=== PATIENT | female | born 1955 | race Caucasian/White ===

== ENCOUNTER 2021-10-08 08:37 | Outpatient (REF) | payer OTHER, SELFPAY ==
[2021-10-08 11:16] LABS: Hematocrit 36.7 % (37.0-47.0); Hemoglobin 11.6 g/dl (12.0-16.0); Mean Corpuscular HGB Conc 31.6 g/dl (31.0-35.0); Mean Corpuscular Hemoglobin 27.2 pg (27.0-33.0); Mean Corpuscular Volume 85.9 fL (80.0-98.0); Mean Platelet Volume 12.2 fL (9.4-12.3); Platelet Count 223 X10*3/uL (160-400); Red Blood Count 4.27 X10*6/uL (4.20-5.50); Red Cell Distribution Width 13.5 % (11.0-16.0); White Blood Count 6.4 X10*3/uL (4.8-10.8)
[2021-10-08 11:42] LABS: Alanine Aminotransferase 25 U/L (0-31); Albumin Level 4.5 g/dL (3.5-5.0); Alkaline Phosphatase 69 U/L (39-117); Anion Gap 12 (12-20); Aspartate Amino Transferase 21 U/L (5-31); Bilirubin Total 0.7 mg/dL (0.0-1.0); Blood Urea Nitrogen 14 mg/dL (9-16); Calcium 9.9 mg/dL (8.4-10.2); Carbon Dioxide 30 mmol/L (22-29); Chloride 102 mmol/L (96-108); Cholesterol 174 mg/dL; Estimated Glomerular Filt Rate > 60; Glucose Fasting 107 mg/dL (60-99); HDL Cholesterol 38 mg/dL; LDL Cholesterol Calculated 109 mg/dl; Potassium 4.5 mmol/L (3.3-5.1); Sodium 139 mmol/L (135-145); Total Protein 7.5 g/dL (6.5-8.0); Triglycerides 137 mg/dL
[2021-10-08 12:05] LABS: TSH reflex Free T4 1.62 uIU/mL (0.32-4.0)
== END 2021-10-08 08:38 | disposition home or self-care (01) ==
LOC: HO.WFDLDS 08:37
PROVIDERS: Visit Provider Hospitalist
DX: Z00.00 Encounter for general adult medical examination without abnormal findings (principal)
CPT/HCPCS: 36415; 80053; 80061; 84443; 85027

== ENCOUNTER 2022-02-05 11:01 | Outpatient (REF) | payer MEDICAID, SELFPAY ==
--- NOTE | ~2022-02-05 | MM_ITS ---
EXAMINATION: BONE DENSITOMETRY CLINICAL INDICATION: Asymptomatic menopausal state. COMPARISON: None (current study represents initial baseline exam). TECHNIQUE: Using a [employer] DXA System (software version: 13.1) manufactured by [employer], dual-energy x-ray absorptiometry was performed of the lumbar spine and left hip. The images are of good technical quality. Summary results are attached. FINDINGS: AP SPINE L1-L4: BMD 0.809 g/cm2, Z-score -1.3, T-score -3.1, osteoporosis. LEFT FEMUR, NECK: BMD 0.803 g/cm2, Z-score -0.1, T-score -1.7, osteopenia. LEFT FEMUR, TOTAL: BMD 0.883 g/cm2, Z-score 0.3, T-score -1.0, normal. IDENTIFIED RISK FACTORS: Menopause, hysterectomy, bilateral oophorectomy. HISTORY OF FRACTURE: None listed. MEDICATIONS: Calcium supplements or multivitamin, vitamin D. MM/XR DEXA axial skeleton IMPRESSION: 1. DIAGNOSIS: Osteoporosis based on the lowest T-score value of -3.1 in the lumbar spine applying World Health Organization criteria. 2. 10-YEAR FRACTURE RISK PREDICTION, FRAX: According to the guidelines, FRAX calculation should only be performed on patients in the osteopenia bone density category. Therefore, FRAX was not performed on this patient. 3. Treatment Recommendations: NOF guidelines recommend consideration for treatment in postmenopausal women and men age 50 and older presenting with the following: -A hip or vertebral (clinical or morphometric) fracture. -T-score less than or equal to -2.5 at the femoral neck or spine after appropriate evaluation to exclude secondary causes. -Low bone mass at the hip or spine and a 10-year fracture probability by FRAX of greater than or equal to 3% for hip fracture or greater than or equal to 20% for major osteoporotic fracture based on the [place] adapted WHO algorithm. 4. Other Recommendations: All treatment decisions require clinical judgment and consideration of individual patient factors, including patient preferences, comorbidities, previous drug use, risk factors not captured in the FRAX model (e.g. frailty, falls, vitamin D deficiency, increased bone turnover, interval significant decline in bone density) and possible under or overestimation of fracture risk by FRAX. Additional medical evaluation for secondary cause of low bone mineral density may be appropriate. FUTURE SCAN RECOMMENDATION: People with diagnosed cases of osteoporosis or at high risk for fracture should have regular bone mineral density tests. For patients eligible for Medicare, routine testing is allowed once every 2 years. The testing frequency can be increased to one year for patients who have rapidly progressing disease, those who are receiving or discontinuing medical therapy to restore bone mass, or have additional risk factors.
--- NOTE | ~2022-02-05 | MM_ITS ---
EXAMINATION: MM SCREENING DIGITAL BREAST TOMOSYNTHESIS, BILATERAL CLINICAL INFORMATION: Screening. Asymptomatic. The lifetime risk of breast cancer based on the Tyrer-Cuzick Model is 5.5%. COMPARISON: Mammography: None. TECHNIQUE: Digital breast tomosynthesis is performed in both the craniocaudal and mediolateral oblique views along with computer-aided detection (CAD). Synthesized 2D images are generated from the tomosynthesis. FINDINGS: The breasts are heterogeneously dense, which may obscure small masses (ACR BI-RADS breast composition Category c). There is multiplicity and bilaterality of grouped and scattered calcifications bilaterally with a rounded appearance and without evidence of linear or branching forms. About the deep right breast along nipple line 10 cm from the nipple there is a 2 mm well-circumscribed density without spiculation or calcifications. By tomosynthesis this should lie in the lateral aspect of the breast, however, there is a large amount of dense breast parenchyma there and I cannot definitely discern this density on craniocaudal view. Spot compression view and ultrasound recommended. Within the retroareolar region of the left breast there is a small grouping of calcifications a few of which are not rounded and for which spot magnification views are recommended in craniocaudal and 90 degree mediolateral views. MM/MM tomosynthesis screening BI IMPRESSION: Bilateral breast findings for further evaluation as described. ASSESSMENT: BI-RADS 0: Incomplete - Need Additional Imaging Evaluation RECOMMENDATION: 1. Additional views of the bilateral breasts. 2. Targeted ultrasound if warranted after review of the additional views. 3. Radiology department staff will contact the patient for additional imaging. This patient's information was entered into a reminder system with a target due date for their next mammogram.
== END 2022-02-05 11:02 | disposition home or self-care (01) ==
LOC: HO.MAMMO 11:01
PROVIDERS: Visit Provider Obstetrics & Gynecology
DX: Z12.31 Encounter for screening mammogram for malignant neoplasm of breast (principal); Z13.820 Encounter for screening for osteoporosis; Z78.0 Asymptomatic menopausal state
CPT/HCPCS: 77063; 77067; 77080

== ENCOUNTER → 2022-02-16 09:23 | Outpatient (BNVA) | payer MEDICAID, SELFPAY | PROVIDERS: PCP Hospitalist; Visit Provider Obstetrics & Gynecology | DX: M81.0 Age-related osteoporosis without current pathological fracture (principal) | CPT/HCPCS: 99212 ==

== ENCOUNTER 2022-02-23 10:16 | Outpatient (REF) | payer MEDICAID, SELFPAY ==
--- NOTE | ~2022-02-23 | MM_ITS ---
EXAMINATION: MM DIAGNOSTIC DIGITAL MAMMOGRAPHY, LEFT. Right breast study at no charge. CLINICAL INFORMATION: Right breast density and left breast calcifications. COMPARISON: Mammography: February 05, 2022 and mammography dating back to April 20, 2019 TECHNIQUE: Digital mammography is performed in the following views: Left breast spot magnification views in 90 degree mediolateral and craniocaudal projections. Spot compression view right breast in mediolateral oblique projection. FINDINGS: The breasts are heterogeneously dense, which may obscure small masses (ACR BI-RADS breast composition Category c). The right breast density about the superior aspect is noted to be stable. The grouping of calcifications about the anterior aspect of the left breast appear similar to previous study however they are better seen and six-month follow-up left breast mammogram with spot magnification views is recommended. Results are discussed with the patient at time of visit. MM/MM added views LT IMPRESSION: Stable right breast density. Probably benign calcifications anterior aspect of the left breast. ASSESSMENT: BI-RADS 3: Probably Benign RECOMMENDATION: Diagnostic mammography in 6 months. This patient's information was entered into a reminder system with a target due date for their next mammogram.
== END 2022-02-23 10:17 | disposition home or self-care (01) ==
LOC: HO.MAMMO 10:16
PROVIDERS: PCP Hospitalist; Visit Provider Hospitalist
DX: R92.2 Inconclusive mammogram (principal); R92.1 Mammographic calcification found on diagnostic imaging of breast
CPT/HCPCS: 77065

== ENCOUNTER → 2022-03-30 09:58 | Outpatient (BNVA) | payer MEDICAID, SELFPAY | PROVIDERS: PCP Hospitalist; Visit Provider Nurse Practitioner Family | DX: M54.2 Cervicalgia (principal); G47.33 Obstructive sleep apnea (adult) (pediatric); Z99.89 Dependence on other enabling machines and devices; G43.009 Migraine without aura, not intractable, without status migrainosus | CPT/HCPCS: 99202 ==

== ENCOUNTER 2022-04-16 08:24 | Outpatient (REF) | payer MEDICAID, SELFPAY ==
[2022-04-16 10:55] LABS: MANUAL DIFF FLAG NO
[2022-04-16 11:11] LABS: Basophils Percent Auto 0.1 % (0-2); Eosinophils Absolute Auto 0.1 X10*3/uL (0.0-0.4); Eosinophils Percent Auto 1.7 % (0-4); Hematocrit 37.2 % (37.0-47.0); Hemoglobin 12.1 g/dl (12.0-16.0); Imm Gran Abs Auto 0.02 X10*3/uL (0.00-0.03); Imm Gran Pct Auto 0.3 % (0.0-0.4); Lymphocytes Absolute Auto 1.9 X10*3/uL (1.2-4.9); Lymphocytes Percent Auto 26.8 % (20-40); Mean Corpuscular HGB Conc 32.5 g/dl (31.0-35.0); Mean Corpuscular Hemoglobin 26.9 pg (27.0-33.0); Mean Corpuscular Volume 82.7 fL (80.0-98.0); Mean Platelet Volume 11.9 fL (9.4-12.3); Monocytes Absolute Auto 0.5 X10*3/uL (0.1-1.2); Monocytes Percent Auto 7.2 % (2-11); Neutrophils Absolute Auto 4.6 x10*3/uL (2.0-8.3); Neutrophils Percent Auto 63.9 % (45-73); Platelet Count 237 X10*3/uL (160-400); Red Cell Distribution Width 13.6 % (11.0-16.0); White Blood Count 7.3 X10*3/uL (4.8-10.8)
[2022-04-16 11:37] LABS: Alanine Aminotransferase 18 U/L (0-31); Albumin Level 4.6 g/dL (3.5-5.0); Alkaline Phosphatase 82 U/L (39-117); Amylase 91 U/L (28-100); Anion Gap 16 (12-20); Aspartate Amino Transferase 20 U/L (5-31); Blood Urea Nitrogen 14 mg/dL (9-16); Calcium 9.7 mg/dL (8.4-10.2); Carbon Dioxide 28 mmol/L (22-29); Chloride 101 mmol/L (96-108); Estimated Glomerular Filt Rate 60; Glucose Fasting 99 mg/dL (60-99); Lipase 29 U/L (8-78); Potassium 4.5 mmol/L (3.3-5.1); Sodium 140 mmol/L (135-145); Total Protein 7.8 g/dL (6.5-8.0)
== END 2022-04-16 08:25 | disposition home or self-care (01) ==
LOC: HO.WFDLDS 08:24
PROVIDERS: Visit Provider Nurse Practitioner Family
DX: R10.9 Unspecified abdominal pain (principal)
CPT/HCPCS: 36415; 80053; 82150; 83690; 85025

== ENCOUNTER → 2022-06-18 10:46 | Outpatient (BNVA) | payer MEDICAID, SELFPAY | PROVIDERS: PCP Hospitalist; Visit Provider Nurse Practitioner Family | DX: G47.33 Obstructive sleep apnea (adult) (pediatric) (principal); M54.2 Cervicalgia; G43.009 Migraine without aura, not intractable, without status migrainosus; R41.840 Attention and concentration deficit; Z99.89 Dependence on other enabling machines and devices | CPT/HCPCS: 99212 ==

== ENCOUNTER → 2022-07-28 11:33 | Outpatient (BNVA) | payer MEDICAID, SELFPAY | PROVIDERS: PCP Hospitalist; Visit Provider Student in an Organized Health Care Education/Training Program | DX: M81.0 Age-related osteoporosis without current pathological fracture (principal) | CPT/HCPCS: 36415; 80053; 82306; 83519; 83970; 84165; 84443; 85025; 99202 ==

== ENCOUNTER 2022-07-28 12:55 | Outpatient (REF) | payer MEDICAID, SELFPAY ==
[2022-07-28 14:21] LABS: Basophils Percent Auto 0.4 % (0-2); Eosinophils Absolute Auto 0.1 X10*3/uL (0.0-0.4); Eosinophils Percent Auto 2.5 % (0-4); Hematocrit 36.4 % (37.0-47.0); Hemoglobin 11.7 g/dl (12.0-16.0); Imm Gran Abs Auto 0.02 X10*3/uL (0.00-0.03); Imm Gran Pct Auto 0.4 % (0.0-0.4); Lymphocytes Absolute Auto 1.7 X10*3/uL (1.2-4.9); Lymphocytes Percent Auto 31.6 % (20-40); MANUAL DIFF FLAG NO; Mean Corpuscular HGB Conc 32.1 g/dl (31.0-35.0); Mean Corpuscular Hemoglobin 26.7 pg (27.0-33.0); Mean Corpuscular Volume 83.1 fL (80.0-98.0); Mean Platelet Volume 11.5 fL (9.4-12.3); Monocytes Absolute Auto 0.3 X10*3/uL (0.1-1.2); Neutrophils Absolute Auto 3.3 x10*3/uL (2.0-8.3); Neutrophils Percent Auto 59.1 % (45-73); Platelet Count 225 X10*3/uL (160-400); Red Blood Count 4.38 X10*6/uL (4.20-5.50); Red Cell Distribution Width 13.3 % (11.0-16.0); White Blood Count 5.5 X10*3/uL (4.8-10.8)
[2022-07-28 15:33] LABS: Alanine Aminotransferase 17 U/L (0-31); Albumin Level 4.4 g/dL (3.5-5.0); Alkaline Phosphatase 77 U/L (39-117); Anion Gap 14 (12-20); Aspartate Amino Transferase 21 U/L (5-31); Blood Urea Nitrogen 18 mg/dL (9-16); Calcium 9.5 mg/dL (8.4-10.2); Carbon Dioxide 25 mmol/L (22-29); Chloride 106 mmol/L (96-108); Estimated Glomerular Filt Rate > 60; Glucose Random 89 mg/dL (60-115); Potassium 4.3 mmol/L (3.3-5.1); Sodium 141 mmol/L (135-145); TSH reflex Free T4 0.79 uIU/mL (0.32-4.0); Total Protein 7.3 g/dL (6.5-8.0)
[2022-07-29 11:38] LABS: Calcium (PTHI) 9.7 mg/dL (8.6-10.4); PTHI 54 pg/mL (16-77)
[2022-07-29 14:53] LABS: Prot Elec - Albumin 4.4 g/dL (3.8-4.8); Prot Elec - Alpha1 0.3 g/dL (0.2-0.3); Prot Elec - Alpha2 0.7 g/dL (0.5-0.9); Prot Elec - Beta 1 0.5 g/dL (0.4-0.6); Prot Elec - Beta 2 0.4 g/dL (0.2-0.5); Prot Elec - Gamma 1.2 g/dL (0.8-1.7); Prot Elec - Total Protein 7.4 g/dL (6.1-8.1)
[2022-08-01 11:54] LABS: Vitamin D 25-OH, D2 <4 ng/mL; Vitamin D 25-OH, D3 41 ng/mL; Vitamin D 25-OH, Total 41 ng/mL (30-100)
[2022-08-03 08:17] LABS: Procollagen Type I Intact N SEE COMMENTS
== END 2022-07-28 12:56 | disposition home or self-care (01) ==
LOC: HO.10HDL 12:55
PROVIDERS: Visit Provider Student in an Organized Health Care Education/Training Program
DX: M81.0 Age-related osteoporosis without current pathological fracture (principal)
CPT/HCPCS: 36415; 80053; 82306; 83519; 83970; 84165; 84443; 85025

== ENCOUNTER → 2022-08-19 10:50 | Outpatient (BNVA) | payer MEDICAID, SELFPAY | PROVIDERS: PCP Hospitalist; Visit Provider Student in an Organized Health Care Education/Training Program | DX: M81.0 Age-related osteoporosis without current pathological fracture (principal) | CPT/HCPCS: 96372 ==

== ENCOUNTER → 2022-08-20 11:06 | Outpatient (BNVA) | payer MEDICAID, SELFPAY | PROVIDERS: PCP Hospitalist; Visit Provider Nurse Practitioner Family | DX: G47.33 Obstructive sleep apnea (adult) (pediatric) (principal); G43.009 Migraine without aura, not intractable, without status migrainosus; R41.840 Attention and concentration deficit; Z99.89 Dependence on other enabling machines and devices | CPT/HCPCS: 99212 ==

== ENCOUNTER 2022-08-28 12:49 | Outpatient (REF) | payer MEDICAID, SELFPAY ==
--- NOTE | ~2022-08-28 | MM_ITS ---
EXAMINATION: MM DIAGNOSTIC DIGITAL BREAST TOMOSYNTHESIS, LEFT CLINICAL INFORMATION: Short interval follow-up left breast for probable benign subareolar calcifications. COMPARISON: Mammography: 02/23/2022, 02/05/2022 (BI-RADS 0); outside mammography 10/10/2020 and 04/20/2019 ([facility], [place], [place]). TECHNIQUE: Digital breast tomosynthesis is performed in both the craniocaudal and mediolateral oblique views along with computer-aided detection (CAD). Synthesized 2D images are generated from the tomosynthesis. Additional magnification left CC and magnification left ML views are obtained. FINDINGS: The breasts are heterogeneously dense, which may obscure small masses (ACR BI-RADS breast composition Category c). Parenchymal pattern is similar to prior studies and there is no significant mass, developing density, or architectural abnormality. The axilla and skin contours are unremarkable. Left breast calcifications for follow-up are benign-appearing and show no significant change from prior diagnostic exam. They are likely chronic and without significant change from outside standard mammography. Management plan is for magnification views left breast at time of annual bilateral mammography, due in 6 months. Results are discussed with the patient and her daughter at time of visit. MM/MM tomosynthesis diagnostic LT IMPRESSION: -Benign-appearing anterior left breast calcifications stable from prior diagnostic exam and likely chronic. No mammographic evidence of malignancy. No significant changes. ASSESSMENT: BI-RADS 3: Probably Benign RECOMMENDATION: Diagnostic mammography at time of annual bilateral mammography, due in 6 months. This patient's information was entered into a reminder system with a target due date for their next mammogram.
== END 2022-08-28 12:50 | disposition home or self-care (01) ==
LOC: HO.MAMMO 12:49
PROVIDERS: PCP Hospitalist; Visit Provider Obstetrics & Gynecology
DX: R91.8 Other nonspecific abnormal finding of lung field (principal)
CPT/HCPCS: 77061; 77065

== ENCOUNTER 2022-09-10 09:11 | Outpatient (REF) | payer MEDICAID, SELFPAY ==
[2022-09-10 15:13] LABS: Magnesium 2.2 mg/dL (1.6-2.6); Phosphorus 3.3 mg/dL (2.7-4.5)
[2022-09-16 18:13] LABS: Vitamin D 25-OH, D2 <4 ng/mL; Vitamin D 25-OH, D3 37 ng/mL; Vitamin D 25-OH, Total 37 ng/mL (30-100)
== END 2022-09-10 09:12 | disposition home or self-care (01) ==
LOC: HO.WFDLDS 09:11
PROVIDERS: Visit Provider Hospitalist
DX: K21.9 Gastro-esophageal reflux disease without esophagitis (principal)
CPT/HCPCS: 36415; 82306; 83735; 84100

== ENCOUNTER 2022-09-30 11:06 | Outpatient (REF) | payer MEDICAID, SELFPAY | END 2022-09-30 11:07 | disposition home or self-care (01) | LOC: HO.LAB 11:06 | PROVIDERS: Visit Provider Hospitalist | DX: Z87.440 Personal history of urinary (tract) infections (principal) | CPT/HCPCS: 87086; 87088; 87186 ==

== ENCOUNTER 2022-12-01 10:50 | Outpatient (REF) | payer MEDICAID, SELFPAY ==
--- NOTE | ~2022-12-01 | XR_ITS ---
EXAMINATION: XR KNEE, LEFT CLINICAL INFORMATION: Fall COMPARISON: None available. TECHNIQUE: 3 views of the left knee. FINDINGS: Bones and soft tissues are normal. No fracture or joint effusion. Alignment is anatomic. Joint spaces are well maintained. No abnormal soft tissue calcification. XR/XR knee LT 3V IMPRESSION: Normal left knee.
--- NOTE | ~2022-12-01 | XR_ITS ---
EXAMINATION: XR HIP, RIGHT CLINICAL INFORMATION: Right hip pain COMPARISON: None available. TECHNIQUE: Two views of the right hip. FINDINGS: Bones and soft tissues are normal. No fracture. Alignment is anatomic. Hip joint space is maintained. XR/XR hip RT min 2V IMPRESSION: Normal right hip.
--- NOTE | ~2022-12-01 | XR_ITS ---
EXAMINATION: Left ankle and foot x-ray CLINICAL INFORMATION: Pain. Fall. COMPARISON: None. TECHNIQUE: 3 views of the left ankle and 3 views of the left foot FINDINGS: Left ankle: Question avulsion fracture of the lateral calcaneus seen on the AP view only. There is adjacent soft tissue swelling. No other fracture is seen. The ankle mortise is normal. Left foot: There is again question avulsion fracture of the lateral talus near the calcaneocuboid joint. There is adjacent soft tissue swelling. There are well-corticated soft tissue ossifications adjacent to the cuboid bone questionable for changes related to old trauma versus accessory ossicles. No other fracture. Joint spaces are normal. There are calcaneal spurs. XR/XR ankle LT min 3V IMPRESSION: Probable avulsion fracture of the lateral calcaneus near the calcaneocuboid joint. Findings will be communicated by the [employer] work flow tile edger.
--- NOTE | ~2022-12-01 | XR_ITS ---
EXAMINATION: XR LUMBOSACRAL SPINE WITH OBLIQUES CLINICAL INFORMATION: Fall COMPARISON: None available. TECHNIQUE: AP, both oblique, and lateral views of the lumbar spine. Lateral view of the lumbosacral junction. FINDINGS: There is mild curvature of lumbar sacral spine to the right. Bone alignment is otherwise normal. No fracture or dislocation. Normal disc spaces. Lower lumbar spine facet arthritis. No pars defect seen. XR/XR lumbar spine 4V min IMPRESSION: Mild scoliosis and degenerative changes. No fracture.
--- NOTE | ~2022-12-01 | XR_ITS ---
EXAMINATION: Left ankle and foot x-ray CLINICAL INFORMATION: Pain. Fall. COMPARISON: None. TECHNIQUE: 3 views of the left ankle and 3 views of the left foot FINDINGS: Left ankle: Question avulsion fracture of the lateral calcaneus seen on the AP view only. There is adjacent soft tissue swelling. No other fracture is seen. The ankle mortise is normal. Left foot: There is again question avulsion fracture of the lateral talus near the calcaneocuboid joint. There is adjacent soft tissue swelling. There are well-corticated soft tissue ossifications adjacent to the cuboid bone questionable for changes related to old trauma versus accessory ossicles. No other fracture. Joint spaces are normal. There are calcaneal spurs. XR/XR foot LT min 3V IMPRESSION: Probable avulsion fracture of the lateral calcaneus near the calcaneocuboid joint. Findings will be communicated by the [employer] work flow research spec.
== END 2022-12-01 10:51 | disposition home or self-care (01) ==
LOC: HO.XRAY 10:50
PROVIDERS: PCP Hospitalist; Visit Provider Student in an Organized Health Care Education/Training Program
DX: M81.0 Age-related osteoporosis without current pathological fracture (principal); W19.XXXA Unspecified fall, initial encounter; M79.672 Pain in left foot; M25.551 Pain in right hip; M41.9 Scoliosis, unspecified
CPT/HCPCS: 72110; 73502; 73562; 73610; 73630; 99212

== ENCOUNTER 2022-12-17 07:20 | Outpatient (REF) | payer MEDICAID, SELFPAY ==
--- NOTE | ~2022-12-17 | XR_ITS ---
EXAMINATION: XR FOOT, LEFT CLINICAL INFORMATION: Foot pain. COMPARISON: 12/01/2022 TECHNIQUE: AP, lateral, and oblique views of the left foot. FINDINGS: Again seen is the avulsion fracture at the lateral calcaneus that can be seen on the AP view. There is a bit more indistinctness of the bone indicating some possible interval healing. Mild degenerative changes are seen at the 1st metatarsophalangeal joint with some joint space narrowing, mild sclerosis and minimal osteophyte formation. No new acute fractures are seen. No stress fractures. XR/XR foot LT min 3V IMPRESSION: Healing avulsion fracture lateral calcaneus. Mild degenerative changes 1st metatarsophalangeal joint.
== END 2022-12-17 07:21 | disposition home or self-care (01) ==
LOC: HO.HOSX 07:20
PROVIDERS: Visit Provider Physician Assistant
DX: S92.002A Unspecified fracture of left calcaneus, initial encounter for closed fracture (principal); W10.9XXA Fall (on) (from) unspecified stairs and steps, initial encounter; Y93.9 Activity, unspecified; Y92.9 Unspecified place or not applicable; Y99.9 Unspecified external cause status
CPT/HCPCS: 73630; 99202

== ENCOUNTER → 2022-12-21 11:19 | Outpatient (BNVA) | payer MEDICAID, SELFPAY | PROVIDERS: PCP Hospitalist; Visit Provider Nurse Practitioner Family | DX: G47.33 Obstructive sleep apnea (adult) (pediatric) (principal); G43.009 Migraine without aura, not intractable, without status migrainosus; R41.840 Attention and concentration deficit; Z99.89 Dependence on other enabling machines and devices | CPT/HCPCS: 99212 ==

== ENCOUNTER 2023-02-04 13:17 | Outpatient (AMB) | payer MEDICAID, SELFPAY ==
--- NOTE | 2023-02-04 13:21 | MHC.OFFVIS ---
Intake Vital Signs 02/04/23 13:22 Height 5 ft 1 in Weight 123 lb BMI 23.2 BP 130/70 Intake Visit Reasons: Annual Intake Note: no concerns Certified Wellness Program Coordinator Required: Yes Certified Wellness Program Coordinator Language: Independent Marketing Consultant Name: Eli MORRIS Information Interpreted: non-clinical & clinical Senior Python Developer: Senior Python Developer Present (Eli MORRIS) Accompanied by: Self / Same As Patient Allergies aspirin Allergy (Intermediate, Verified 02/04/23 13:26) Rash NSAIDS (Non-Steroidal Anti-Inflamma Allergy (Intermediate, Verified 02/04/23 13:26) Rash Penicillins Allergy (Intermediate, Verified 02/04/23 13:26) Rash Post menopausal: Yes HPI HPI Comments History of Present Illness Details Presenting for annual exam. No complaints. Last Pap/HPV was many years ago, no history of abnormal Pap smear, the patient is status post hysterectomy with BSO for bleeding Last Mammogram was BI-RADS 3 in 08/27, the recommendation was to repeat in 6 months, the patient has an appointment scheduled for repeat mammogram in Last Colonoscopy was 3 years ago, the next you colonoscopy according to patient will be in 7 year Last DEXA scan was in 02/23 showed osteoporosis, the patient had a consult with rheumatology about options of treatment and the patient has been on Prolia q.6 months PFS Medical History Carpal tunnel syndrome High cholesterol Hypertension Osteoporosis Sleep apnea Trigger finger Surgical History History of 3 sections History of carpal tunnel release Hx of hysterectomy Family History Father Hypertension Mother Hypertension Arthritis Social History Household Members: Children Housing: Condominium Alcohol intake: current Alcohol intake frequency: holidays/special occasions only Alcohol type: wine Patient Tobacco Use Status: Never used Tobacco e-Cigarette/Vaping Use: Never Used Current occupational status: unemployed Sexual orientation: Straight/Heterosexual Gender identity: Female Female Reproductive History Menstrual Menopause type: surgical Total pregnancies: 3 Full term: 3 Number of Living Children: 3 Date of Mammogram: 08/28/22 Review of Systems Const All systems reviewed & are unremarkable except as noted in HPI and below Card Reports as per HPI and Reports no additional complaints Resp Reports as per HPI and Reports no additional complaints GI Reports as per HPI and Reports no additional complaints Reports as per HPI Physical Exam Vital Signs: BMI result Body Mass Index 23.2 Const General: cooperative, healthy appearing and comfortable General: Yes bladder normal to palpation External Female Exam: No lesion Speculum Exam - Vagina: normal appearance of the vagina, normal vaginal discharge and not erythematous Speculum Exam - Cervix: Cervix absent Bimanual exam- vagina & uterus: bladder normal to palpation and uterus absent Bimanual Exam- Adnexa, other: Other (No masses detected) Assessment & Plan Assessment & Plan (1) Well woman exam: Code(s): Z01.419 - Encounter for gynecological examination (general) (routine) without abnormal findings Plan: Co testing not indicated since the patient 's age is above 65 with no history of abnormal Pap smears last 25 years and the patient is status post hysterectomy with BSO. Counseled the patient about the recommended dietary allowance of 1200 mg of Calcium & 800 IU of vitamin D. Mammogram scheduled in the coming 2 weeks , the patient is up-to-date with her screening colonoscopy done. The patient was instructed to perform monthly self-breast exams and to schedule an annual exam in a year; all questions answered and the patient verbalized understanding. Coding Level of Care Code Est Pt Prev Care >65y(32930) Diagnoses Well woman exam Z01.419
[2023-02-04 13:22] VITALS: BP 130/70; BMI 23.2
== END 2023-02-04 14:56 | disposition home or self-care (01) ==
LOC: HO.HWS 13:17
PROVIDERS: PCP Hospitalist; Visit Provider Obstetrics & Gynecology
DX: Z01.419 Encounter for gynecological examination (general) (routine) without abnormal findings (principal)
CPT/HCPCS: 99397

== ENCOUNTER → 2023-02-04 13:17 | Outpatient (BNVA) | payer MEDICAID, SELFPAY | PROVIDERS: PCP Hospitalist; Visit Provider Obstetrics & Gynecology ==

== ENCOUNTER 2023-02-10 10:27 | Outpatient (REF) | payer MEDICAID, SELFPAY ==
[2023-02-10 13:50] LABS: Alanine Aminotransferase 19 U/L (0-31); Albumin Level 4.3 g/dL (3.5-5.0); Alkaline Phosphatase 49 U/L (39-117); Anion Gap 12 (12-20); Aspartate Amino Transferase 20 U/L (5-31); Bilirubin Total 1.1 mg/dL (0.0-1.0); Blood Urea Nitrogen 18 mg/dL (9-16); Calcium 9.9 mg/dL (8.4-10.2); Carbon Dioxide 25 mmol/L (22-29); Chloride 110 mmol/L (96-108); Estimated Glomerular Filt Rate > 60; Glucose Random 93 mg/dL (60-115); Potassium 3.6 mmol/L (3.3-5.1); Sodium 143 mmol/L (135-145); Total Protein 7.5 g/dL (6.5-8.0)
== END 2023-02-10 10:28 | disposition home or self-care (01) ==
LOC: HO.10HDL 10:27
PROVIDERS: Visit Provider Student in an Organized Health Care Education/Training Program
DX: M81.0 Age-related osteoporosis without current pathological fracture (principal)
CPT/HCPCS: 36415; 80053

== ENCOUNTER 2023-03-02 10:58 | Outpatient (REF) | payer MEDICAID, SELFPAY ==
--- NOTE | ~2023-03-02 | MM_ITS ---
EXAMINATION: MM DIAGNOSTIC DIGITAL BREAST TOMOSYNTHESIS, BILATERAL CLINICAL INFORMATION: Six-month follow-up left breast probably benign retroareolar calcifications to establish one-year stability. Patient also due for bilateral screening exam. COMPARISON: Mammography: 01/25/2023, 02/23/2022, 02/05/2022, and dating back to 04/20/2019. TECHNIQUE: Digital breast tomosynthesis is performed in both the craniocaudal and mediolateral oblique views along with computer-aided detection (CAD). Synthesized 2D images are generated from the tomosynthesis. In addition, spot magnification 2-D CC and ML views of the left breast were performed. FINDINGS: The breasts are heterogeneously dense, which may obscure small masses (ACR BI-RADS breast composition Category c). There are stable grouped calcifications in the retroareolar region of the left breast, anterior one third, just behind the nipple, which have not changed in morphology, number, or overall appearance. These remain probably benign. No aggressive changes noted. There are scattered calcifications seen throughout both breasts, unchanged and benign. The appearance is suggestive of adenosis or apocrine changes. No new suspicious grouping or clustering. There are no suspicious masses, suspicious grouped calcifications, or areas of architectural distortion which can be distinguished from the heterogeneously dense breast parenchyma. The parenchymal pattern is stable from prior exams. MM/MM tomosynthesis diagnostic BI IMPRESSION: No significant interval change and retroareolar left breast grouped calcifications, which remain probably benign. This establishes a one-year stability. Six-month interval follow-up left breast diagnostic mammogram to include standard magnification views recommended to ensure stability over 1.5 years. Goal is stability over 2 years. Otherwise, stable benign findings in both breasts. No findings suspicious for malignancy. ASSESSMENT: BI-RADS BI-RADS 3 - Probably benign finding(s) - 6 month follow-up suggested RECOMMENDATION: 6 Month F/U Results were provided to the patient at time of visit by the technologist. This patient's information was entered into a reminder system with a target due date for their next mammogram.
== END 2023-03-02 10:59 | disposition home or self-care (01) ==
LOC: HO.MAMMO 10:58
PROVIDERS: PCP Internal Medicine; Visit Provider Obstetrics & Gynecology
DX: R92.1 Mammographic calcification found on diagnostic imaging of breast (principal)
CPT/HCPCS: 77062; 77066

== ENCOUNTER → 2023-03-02 11:00 | Outpatient (BNV) | payer MEDICAID, SELFPAY | PROVIDERS: PCP Internal Medicine; Visit Provider Radiology Diagnostic Radiology | DX: N63.20 Unspecified lump in the left breast, unspecified quadrant (principal) | CPT/HCPCS: 77062; 77066 ==

== ENCOUNTER 2023-03-04 11:05 | Outpatient (AMB) | payer MEDICAID, SELFPAY ==
--- NOTE | 2023-03-04 15:30 | AM.OFFVISNUR ---
Intake Intake Visit Reasons: Prolia Injection Allergies aspirin Allergy (Intermediate, Verified 02/04/23 13:26) Rash NSAIDS (Non-Steroidal Anti-Inflamma Allergy (Intermediate, Verified 02/04/23 13:26) Rash Penicillins Allergy (Intermediate, Verified 02/04/23 13:26) Rash Nursing Note Verbal consent obtained Aseptic technique used Pt tolerated the injection well Printout on Prolia given in [place] Office Meds Prolia Performing Provider: Ting Mendoza MD Administered by: Alva Strong RN on 03/04/23 11:00 Dose Route Admin Location Lot Number Expiration Date NDC Staff Weapons Officer 60 mg subcut left arm [id number] 03/04/25 63215-425-42 [facility] Coding Level of Care Code Procedure Only Diagnoses Assessment & Plan Assessment & Plan Orders: Orders AMB Denosumab Injection Patient Supplied Today M81.0 - Age-related osteoporosis without current pathological fracture
== END 2023-03-04 11:53 | disposition home or self-care (01) ==
PROVIDERS: PCP Hospitalist
DX: M81.0 Age-related osteoporosis without current pathological fracture (principal)

== ENCOUNTER → 2023-03-04 11:05 | Outpatient (BNVA) | payer MEDICAID, SELFPAY | PROVIDERS: PCP Hospitalist | DX: M81.0 Age-related osteoporosis without current pathological fracture (principal) | CPT/HCPCS: 96372; J0897 ==

== ENCOUNTER 2023-04-22 10:54 | Outpatient (AMB) | payer MEDICAID, SELFPAY ==
--- NOTE | 2023-04-22 11:13 | A.OFFVIS_ITS ---
Intake Vital Signs 04/22/23 11:19 Weight 125 lb 6 oz BP 110/78 Pulse 66 Pulse Source Pulse Oximeter Pulse Oximetry (%) 98 Oxygen Delivery Method Room Air Intake Visit Reasons: 4m follow up/confirmed Intake Note: F/U sleep Product Test Specialist Required: Yes Allergies aspirin Allergy (Intermediate, Verified 02/04/23 13:26) Rash NSAIDS (Non-Steroidal Anti-Inflamma Allergy (Intermediate, Verified 04/22/23 11: 14) Rash Penicillins Allergy (Intermediate, Verified 04/22/23 11:14) Rash HPI HPI Comments History of Present Illness Details 67 y/o female patient presents for follo w up of JACKSON on CPAP. Pt reports she had episodes of panic attack when she had a bad new from her country. Pt also also depressed, and discussed with her primary care. She started escitalopram 5 mg daily few days ago, but it caused her insomnia. She has difficulty concentration and also some confusion because she has not sleep well for couple of days. Pt tried melatonin 3mg and it helped a little for sleep. She will see therapist today for depression. CPAP compliance and therapy response (03/19/23-04/17/23) reviewed. She is on APAP [id number]. the usage days 90 % and the average usage hours 5 hrs. The max pressure is 16.3 and the AHI was 1.5/hr. [facility] Medical History High cholesterol Sleep apnea Osteoporosis Hypertension Trigger finger Carpal tunnel syndrome Surgical History History of 3 sections History of carpal tunnel release Hx of hysterectomy Family History Father Hypertension Mother Hypertension Arthritis Social History (Updated 04/22/23 @ 11:19 by Betty Singh CMA) Household Members: Children Housing: Condominium Alcohol intake: current Alcohol intake frequency: holidays/special occasions only Alcohol type: wine Patient Tobacco Use Status: Never used Tobacco e-Cigarette/Vaping Use: Never Used Current occupational status: unemployed Sexual orientation: Straight/Heterosexual Gender identity: Female Review of Systems Const All systems reviewed & are unremarkable except as noted in HPI and below Physical Exam Vital Signs: Last Vital Signs Pulse 66 04/22/23 11:19 BP 110/78 04/22/23 11:19 Pulse Ox 98 04/22/23 11:19 Oxygen Delivery Method Room Air 04/22/23 11:19 Const General: cooperative, healthy appearing and comfortable Nutritional Appearance: average body habitus Orientation/consciousness: patient oriented x3 HEENT Mouth: moist mucous membranes Resp Effort & Inspection: normal respiratory effort and able to speak in complete sentences Auscultation: clear to auscultation bilaterally Cardio Rate: regular rate Rhythm: regular rhythm GI Inspection: No distended Palpation (GI): Soft to palpation and nontender Neuro General: patient oriented x3 Extrem Other: Minimal osteoarthritic changes of both hands Assessment & Plan Assessment & Plan (1) Difficulty concentrating: Code(s): R41.840 - Attention and concentration deficit (2) JACKSON on CPAP: Code(s): G47.33 - Obstructive sleep apnea (adult) (pediatric); Z99.89 - Dependence on other enabling machines and devices (3) Migraine without aura: Code(s): G43.009 - Migraine without aura, not intractable, without status migrainosus Plan Continue to take vitamin B2 400 mg q daily and magensieum 400 mg qHS for migraine prevention. Continue to use APAP [id number] as patient experiences good clinical effects. Stressed compliance, use CPAP nightly and more than 4 hours. Advised patient to try melatonin 3-9 mg qHS for sleep. Followed by psychiatrist and therapist for depression and manage the medications. Coding Level of Care Code Est Pt Level 3 (15978) Diagnoses Difficulty concentrating R41.840 JACKSON on CPAP G47.33; Z99.89 Migraine without aura G43.009
[2023-04-22 11:19] VITALS: BP 110/78; PULSE 66; O2SAT 98
== END 2023-04-22 11:42 | disposition home or self-care (01) ==
PROVIDERS: PCP Hospitalist; Visit Provider Nurse Practitioner Family
DX: R41.840 Attention and concentration deficit (principal); G47.33 Obstructive sleep apnea (adult) (pediatric); Z99.89 Dependence on other enabling machines and devices; G43.009 Migraine without aura, not intractable, without status migrainosus
CPT/HCPCS: 99213

== ENCOUNTER → 2023-04-22 10:54 | Outpatient (BNVA) | payer MEDICAID, SELFPAY | PROVIDERS: PCP Hospitalist; Visit Provider Nurse Practitioner Family | DX: G47.33 Obstructive sleep apnea (adult) (pediatric) (principal); R41.840 Attention and concentration deficit; G43.009 Migraine without aura, not intractable, without status migrainosus; Z99.89 Dependence on other enabling machines and devices | CPT/HCPCS: 99212 ==

== ENCOUNTER 2023-05-21 09:47 | Outpatient (AMB) | payer MEDICAID, SELFPAY ==
[2023-05-21 10:00] VITALS: BP 108/62; PULSE 75; TEMP 36.4; O2SAT 98; BMI 24.8
--- NOTE | 2023-05-21 10:00 | A.OFFVIS_ITS ---
Intake Vital Signs 05/21/23 10:00 Height 4 ft 11.25 in Weight 123 lb 10.869 oz BMI 24.8 BP 108/62 Blood Pressure Location Rt brachial Position Sitting Pulse 75 Pulse Source Pulse Oximeter Temp 97.6 F Temp Source Skin Pulse Oximetry (%) 98 Oxygen Delivery Method Room Air Intake Visit Reasons: Osteoporosis Intake Note: Pt last seen 12/01/22, presents today for follow up and test results. Reports problems sleeping, she is on cpap. Started seeing therapist Brent [place] [employer] Operating [employer] Required: No Accompanied by: Self / Same As Patient Allergies aspirin Allergy (Intermediate, Verified 05/21/23 10:06) Rash NSAIDS (Non-Steroidal Anti-Inflamma Allergy (Intermediate, Verified 05/21/23 10:06) Rash Penicillins Allergy (Intermediate, Verified 05/21/23 10:06) Rash Medication List - Last Reconciled 05/21/23 by Ting Mendoza MD acetaminophen 500 mg PO Q6H PRN atorvastatin 40 mg PO DAILY carvedilol 6.25 mg PO BID cetirizine 10 mg PO DAILY cholecalciferol (vitamin D3) (Vitamin D3) 25 mcg PO DAILY denosumab (Prolia) 60 mg subcut [id number] escitalopram oxalate 5 mg PO DAILY fluticasone propionate 50 mcg/actuation (Allergy Relief (fluticasone)) 1 spray intranasal DAILY losartan 100 mg PO DAILY magnesium oxide 400 - 800 mg PO DAILY melatonin 3 mg PO BEDTIME PRN omeprazole 40 mg PO DAILY riboflavin (vitamin B2) 400 mg PO DAILY 90 days simethicone (Gas Relief (simethicone)) 125 mg PO BID-QID PRN triamcinolone acetonide 0.5% 1 appl topical DAILY PRN HPI HPI Comments History of Present Illness Details This is a 67-year-old female with osteoporosis who returns for follow- up. She states that she is doing about the same. She states that she has being more anxious and depressed recently. She wonders whether it is related to the Prolia injections. She states that she has lower back pain and bilateral hip pain. States that she only gets left foot pain if she rotates the foot Initial history: this is a 66-year-old female who presents for evaluation of osteoporosis. Patient stated she was diagnosed with osteoporosis back in 2017 in [facility] and she was started on Fosamax. Patient took a few doses and developed urticarial like skin rashes. She also has history of allergies to aspirin, NSAIDs and penicillin. When she moved to [facility] she received 1 dose of Prolia in November of 2020. No reported side effects. Patient feels well overall. A few months ago she had left shoulder stiffness, she went to physical therapy and her shoulder range of motion has improved. [facility] Medical History High cholesterol Sleep apnea Osteoporosis Hypertension Trigger finger Carpal tunnel syndrome Surgical History History of 3 sections History of carpal tunnel release Hx of hysterectomy Family History Father Hypertension Mother Hypertension Arthritis Social History Household Members: Children [facility] Alcohol intake: current Alcohol intake frequency: holidays/special occasions only Alcohol type: wine Patient Tobacco Use Status: Never used Tobacco e-Cigarette/Vaping Use: Never Used Current occupational status: unemployed Sexual orientation: Straight/Heterosexual Gender identity: Female Review of Systems Musc Reports back pain and Reports arthralgias Psych Reports anxiety and Reports depression Physical Exam Vital Signs: Last Vital Signs Temp 97.6 F 05/21/23 10:00 Pulse 75 05/21/23 10:00 BP 108/62 05/21/23 10:00 Pulse Ox 98 05/21/23 10:00 Oxygen Delivery Method Room Air 05/21/23 10:00 BMI result Body Mass Index 24.8 Const General: cooperative, healthy appearing and comfortable Nutritional Appearance: average body habitus Orientation/consciousness: patient oriented x3 HEENT Other: No dental caries, multiple fillings Head: Yes normocephalic and Yes atraumatic Resp Effort & Inspection: normal respiratory effort and able to speak in complete sentences Neuro General: patient oriented x3 Extrem Other: Minimal osteoarthritic changes of both hands Lower lumbar paraspinal muscle tenderness Positive straight leg raise test on the right no trochanteric bursa area tenderness bilaterally Assessment & Plan Assessment & Plan (1) Osteoporosis: Comment: DEXA 02/22 L-Spine t score -3.1 started on bisphosphonates in 2017>> developed allergic side effects. 1 dose of Prolia in 11/2020 without any side effects then she moved from [place] to [place] Prolia again 08/27-02/24 Code(s): M81.0 - Age-related osteoporosis without current pathological fracture Qualifiers: Osteoporosis type: age-related Presence of current pathological fracture: without current pathological fracture Qualified Code(s): M81.0 - Age- related osteoporosis without current pathological fracture Plan: This is a 66-year-old female with osteoporosis for follow-up. Doing well overall. Most recent Prolia injection was 02/2023 and it was uneventful. Continue Prolia every 6 months. Continue vitamin-D supplementation Labs before next visit in 3 months (2) Degenerative arthritis of lumbar spine: Code(s): M47.816 - Spondylosis without myelopathy or radiculopathy, lumbar region Qualifiers: Spinal osteoarthritis complication: without myelopathy or radiculopathy Qualified Code(s): M47.816 - Spondylosis without myelopathy or radiculopathy, lumbar region Plan: Referred to PT Plan I spent 26 minutes reviewing patient's chart, evaluating patient, ordering diagnostic workup, counseling patient and documenting in the chart Orders: Orders PT Evaluation and Treatment Today M47.816 - Spondylosis without myelopathy or radiculopathy, lumbar region Basic Metabolic Panel 3 Months M81.0 - Age-related osteoporosis without current pathological fracture Vitamin D 25-OH (D2 and D3) 3 Months E55.9 - Vitamin D deficiency, unspecified Coding Level of Care Code Est Pt Level 4 (20501) Diagnoses Age-related osteoporosis without current pathological fracture M81.0 Osteoporosis type: age-related Presence of current pathological fracture: without current pathological fracture Spondylosis of lumbar region without myelopathy or radiculopathy M47.816 Spinal osteoarthritis complication: without myelopathy or radiculopathy
== END 2023-05-21 10:33 | disposition home or self-care (01) ==
PROVIDERS: PCP Internal Medicine; Visit Provider Student in an Organized Health Care Education/Training Program
DX: M81.0 Age-related osteoporosis without current pathological fracture (principal); M47.816 Spondylosis without myelopathy or radiculopathy, lumbar region
CPT/HCPCS: 99214

== ENCOUNTER → 2023-05-21 09:47 | Outpatient (BNVA) | payer MEDICAID, SELFPAY | PROVIDERS: PCP Internal Medicine; Visit Provider Student in an Organized Health Care Education/Training Program | DX: M81.0 Age-related osteoporosis without current pathological fracture (principal); M47.816 Spondylosis without myelopathy or radiculopathy, lumbar region | CPT/HCPCS: 99212 ==

== ENCOUNTER 2023-08-18 10:53 | Outpatient (AMB) | payer MEDICAID, SELFPAY ==
--- NOTE | 2023-08-18 10:58 | A.OFFVIS_ITS ---
Intake Vital Signs 08/18/23 11:07 Height 4 ft 11.25 in Weight 125 lb 4 oz BMI 25.1 BP 115/72 Blood Pressure Location Rt brachial Position Sitting Pulse 67 Pulse Source Pulse Oximeter Pulse Oximetry (%) 97 Oxygen Delivery Method Room Air Intake Visit Reasons: 4 mnts f/u for sleep - CONF Intake Note: Patient presents for she will like melatonin in liquid, wondering if she could get Vidarol in drops. waking up at night more often Allergies aspirin Allergy (Intermediate, Verified 08/18/23 11:05) Rash NSAIDS (Non-Steroidal Anti-Inflamma Allergy (Intermediate, Verified 08/18/23 11:05) Rash Penicillins Allergy (Intermediate, Verified 08/18/23 11:05) Rash HPI HPI Comments History of Present Illness Details 67 y/o female patient presents for follo w up of JACKSON on CPAP. The CPAP compliance and therapy response (05/19/23-08/16/23) reviewed. She is on APAP [id number]. The usage days 91 % and the average usage hours 3 hrs. The max pressure is 14.8 and the AHI was 1.6/hr. Pt reports she recently had diverticulitis and she is on ABT now. Pt currently takes cognitive behavior therapy for insomnia at [facility], she finished 2 classes. Pt tried melatonin 3-6mg and it helped a little for sleep. Pt also reports hx of depression and sees therapist regularly, and her mood is stable now. Pt is on magnesium 400 mg qHS and vitamin B2 400 mg for migraine prevention, and migraine frequency and intensity has improved. [facility] Medical History High cholesterol Sleep apnea Osteoporosis Hypertension Trigger finger Carpal tunnel syndrome Surgical History History of 3 sections History of carpal tunnel release Hx of hysterectomy Family History Father Hypertension Mother Hypertension Arthritis Social History [facility]hold Members: Children [facility] Alcohol intake: current Alcohol intake frequency: holidays/special occasions only Alcohol type: wine Patient Tobacco Use Status: Never used Tobacco e-Cigarette/Vaping Use: Never Used Current occupational status: unemployed Sexual orientation: Straight/Heterosexual Gender identity: Female Review of Systems Const All systems reviewed & are unremarkable except as noted in HPI and below Physical Exam Vital Signs: Last Vital Signs Pulse 67 08/18/23 11:07 BP 115/72 08/18/23 11:07 Pulse Ox 97 08/18/23 11:07 Oxygen Delivery Method Room Air 08/18/23 11:07 BMI result Body Mass Index 25.1 Const General: cooperative, healthy appearing and comfortable Nutritional Appearance: average body habitus Orientation/consciousness: patient oriented x3 HEENT Other: No dental caries, multiple fillings Head: Yes normocephalic and Yes atraumatic Resp Effort & Inspection: normal respiratory effort and able to speak in complete sentences Neuro General: patient oriented x3 Extrem Other: Minimal osteoarthritic changes of both hands Lower lumbar paraspinal muscle tenderness Positive straight leg raise test on the right no trochanteric bursa area tenderness bilaterally Assessment & Plan Assessment & Plan (1) Difficulty concentrating: Code(s): R41.840 - Attention and concentration deficit (2) JACKSON on CPAP: Code(s): G47.33 - Obstructive sleep apnea (adult) (pediatric); Z99.89 - Dependence on other enabling machines and devices (3) Migraine without aura: Code(s): G43.009 - Migraine without aura, not intractable, without status migrainosus Plan Continue to take vitamin B2 400 mg q daily and magensieum 400 mg qHS for migraine prevention. Continue to use APAP [id number] as patient experiences good clinical effects. Stressed compliance, use CPAP nightly and more than 4 hours. Advised patient to try melatonin 3-9 mg qHS for sleep. Followed by psychiatrist and therapist for depression and CBTi. Medications: Changed From melatonin 3 mg orally 1-3 tabs q HS PRN; for insomnia To melatonin 3 mg orally 1-3 tabs q HS PRN; 30 days 90 tabs 6RF for insomnia Coding Level of Care Code Est Pt Level 4 (15857) Diagnoses Difficulty concentrating R41.840 JACKSON on CPAP G47.33; Z99.89 Migraine without aura G43.009
[2023-08-18 11:07] VITALS: BP 115/72; PULSE 67; O2SAT 97; BMI 25.1
== END 2023-08-18 11:52 | disposition home or self-care (01) ==
PROVIDERS: PCP Hospitalist; Visit Provider Nurse Practitioner Family
DX: R41.840 Attention and concentration deficit (principal); G47.33 Obstructive sleep apnea (adult) (pediatric); Z99.89 Dependence on other enabling machines and devices; G43.009 Migraine without aura, not intractable, without status migrainosus
CPT/HCPCS: 99214

== ENCOUNTER → 2023-08-18 10:53 | Outpatient (BNVA) | payer MEDICAID, SELFPAY | PROVIDERS: PCP Hospitalist; Visit Provider Nurse Practitioner Family | DX: G47.33 Obstructive sleep apnea (adult) (pediatric) (principal); R41.840 Attention and concentration deficit; G43.009 Migraine without aura, not intractable, without status migrainosus; Z99.89 Dependence on other enabling machines and devices | CPT/HCPCS: 99212 ==

== ENCOUNTER 2023-08-30 10:26 | Outpatient (REF) | payer MEDICAID, SELFPAY ==
[2023-08-30 11:44] LABS: Anion Gap 9 (12-20); Blood Urea Nitrogen 12 mg/dL (9-16); Calcium 9.2 mg/dL (8.4-10.2); Carbon Dioxide 29 mmol/L (22-29); Chloride 109 mmol/L (96-108); Estimated Glomerular Filt Rate > 60; Glucose Random 71 mg/dL (60-115); Potassium 4.2 mmol/L (3.3-5.1); Sodium 143 mmol/L (135-145)
[2023-09-03 12:28] LABS: Vitamin D 25-OH, D2 <4 ng/mL; Vitamin D 25-OH, D3 30 ng/mL; Vitamin D 25-OH, Total 30 ng/mL (30-100)
== END 2023-08-30 10:27 | disposition home or self-care (01) ==
LOC: HO.LAB 10:26
PROVIDERS: Visit Provider Student in an Organized Health Care Education/Training Program
DX: M81.0 Age-related osteoporosis without current pathological fracture (principal); E55.9 Vitamin D deficiency, unspecified
CPT/HCPCS: 36415; 80048; 82306

== ENCOUNTER 2023-09-07 10:45 | Outpatient (REF) | payer MEDICAID, SELFPAY ==
--- NOTE | ~2023-09-07 | MM_ITS ---
EXAMINATION: MM DIAGNOSTIC DIGITAL BREAST TOMOSYNTHESIS, LEFT CLINICAL INFORMATION: 6 month interval follow-up left breast retroareolar calcifications (to establish a 1.5 years stability). COMPARISON: Mammography: 08/28/2022, 03/02/2023, 02/23/2022 (BI-RADS 3), 02/05/2022 (BI-RADS 0); outside mammography 10/10/2020 and 04/20/2019 ([facility], [place], [place]). TECHNIQUE: Digital breast tomosynthesis is performed in the following views: Full-field digital left CC, MLO, mediolateral views, as well as spot magnification left CC and ML views. FINDINGS: The breasts are heterogeneously dense, which may obscure small masses (ACR BI-RADS breast composition Category c). There are stable grouped calcifications in the retroareolar region of the left breast, anterior one third, just behind the nipple, which have not changed in morphology, number, or overall appearance. These remain probably benign. No aggressive changes noted. Otherwise, scattered calcifications are seen throughout the left breast, punctate and benign. The appearance is suggestive of adenosis or apocrine changes. No new suspicious grouping, suspicious mass, or area of architectural distortion left breast. Parenchymal pattern is unchanged from prior exams. MM/MM tomosynthesis diagnostic LT IMPRESSION: No findings left breast suspicious for malignancy. Stable benign findings. Stable probably benign left breast calcifications, stable over 1.5 years. Recommend additional 6 month interval diagnostic left mammography follow-up to include standard magnification views to establish a two-year stability when the patient is due for bilateral screening mammography. ASSESSMENT: BI-RADS BI-RADS 3 - Probably benign finding(s) - 6 month follow-up suggested RECOMMENDATION: 6 Month F/U Results were provided to the patient at time of visit by the technologist. This patient's information was entered into a reminder system with a target due date for their next mammogram.
== END 2023-09-07 10:46 | disposition home or self-care (01) ==
LOC: HO.MAMMO 10:45
PROVIDERS: PCP Internal Medicine; Visit Provider Internal Medicine
DX: R92.1 Mammographic calcification found on diagnostic imaging of breast (principal); M47.816 Spondylosis without myelopathy or radiculopathy, lumbar region; M81.0 Age-related osteoporosis without current pathological fracture; R41.3 Other amnesia; Z79.899 Other long term (current) drug therapy
CPT/HCPCS: 77061; 77065; 96372; 99212; J0897

== ENCOUNTER → 2023-09-07 11:00 | Outpatient (BNV) | payer MEDICAID, SELFPAY | PROVIDERS: PCP Internal Medicine; Visit Provider Radiology Diagnostic Radiology | DX: R92.1 Mammographic calcification found on diagnostic imaging of breast (principal) | CPT/HCPCS: 77061; 77065 ==

== ENCOUNTER 2023-09-07 11:51 | Outpatient (AMB) | payer MEDICAID, SELFPAY ==
--- NOTE | 2023-09-07 12:25 | A.OFFVIS_ITS ---
Intake Vital Signs 09/07/23 12:31 Height 4 ft 11 in Weight 128 lb 11.999 oz BMI 26.0 BP 118/66 Blood Pressure Location Rt brachial Position Sitting Pulse 71 Pulse Source Pulse Oximeter Temp 97.5 F Temp Source Skin Pulse Oximetry (%) 98 Oxygen Delivery Method Room Air Intake Visit Reasons: Osteoporosis/prolia injection Intake Note: Patient last seen 05/21/23 presents today for follow up and test results. Prolia administered in office today. 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: No Accompanied by: Self / Same As Patient Allergies aspirin Allergy (Intermediate, Verified 09/07/23 12:35) Rash NSAIDS (Non-Steroidal Anti-Inflamma Allergy (Intermediate, Verified 09/07/23 12:35) Rash Penicillins Allergy (Intermediate, Verified 09/07/23 12:35) Rash Medication List - Last Reconciled 09/07/23 by Ting Mendoza MD acetaminophen 500 mg PO Q6H PRN atorvastatin 40 mg PO DAILY carvedilol 6.25 mg PO BID cetirizine 10 mg PO DAILY cholecalciferol (vitamin D3) (Vitamin D3) 2,000 units PO DAILY denosumab (Prolia) 60 mg subcut [id number] escitalopram oxalate 5 mg PO DAILY fluticasone propionate 50 mcg/actuation (Allergy Relief (fluticasone)) 1 spray intranasal DAILY losartan 100 mg PO DAILY magnesium oxide 400 - 800 mg PO DAILY melatonin 3 mg orally 1-3 tabs q HS PRN; 30 days omeprazole 40 mg PO DAILY riboflavin (vitamin B2) 400 mg PO DAILY 90 days simethicone (Gas Relief (simethicone)) 125 mg PO BID-QID PRN triamcinolone acetonide 0.5% 1 appl topical DAILY PRN HPI HPI Comments History of Present Illness0 Details This is a 67-year-old female with osteoporosis who returns for follow- up and Prolia injection. She continues to have mild polyarthralgias. I had ref erred her to PT last visit for her degenerative arthritis of her L-spine, she stated that they did not call her but she will be scheduled soon. She received Prolia injection today. She has not had any falls. She states that recently she has been having some memory issues. She has the apnea and uses a CPAP machine. She takes the mask off at night. Initial history: this is a 66-year-old female who presents for evaluation of osteoporosis. Patient stated she was diagnosed with osteoporosis back in 2016 in [facility] and she was started on Fosamax. Patient took a few doses and developed urticarial like skin rashes. She also has history of allergies to aspirin, NSAIDs and penicillin. When she moved to [facility] she received 1 dose of Prolia in November of 2020. No reported side effects. Patient feels well overall. A few months ago she had left shoulder stiffness, she went to physical therapy and her shoulder range of motion has improved. [facility] Medical History High cholesterol Sleep apnea Osteoporosis Hypertension Trigger finger Carpal tunnel syndrome Surgical History History of 3 sections History of carpal tunnel release Hx of hysterectomy Family History Father Hypertension Mother Hypertension Arthritis Social History Household Members: Children [facility] Alcohol intake: current Alcohol intake frequency: holidays/special occasions only Alcohol type: wine Patient Tobacco Use Status: Never used Tobacco e-Cigarette/Vaping Use: Never Used Current occupational status: unemployed Sexual orientation: Straight/Heterosexual Gender identity: Female Review of Systems Musc Reports back pain and Reports arthralgias Neuro Reports memory loss Psych Reports memory loss Physical Exam Vital Signs: Last Vital Signs Temp 97.5 F 09/07/23 12:31 Pulse 71 09/07/23 12:31 BP 118/66 09/07/23 12:31 Pulse Ox 98 09/07/23 12:31 Oxygen Delivery Method Room Air 09/07/23 12:31 BMI result Body Mass Index 26.0 Const General: cooperative, healthy appearing and comfortable Nutritional Appearance: average body habitus Orientation/consciousness: patient oriented x3 HEENT Other: No dental caries, multiple fillings Head: Yes normocephalic and Yes atraumatic Resp Effort & Inspection: normal respiratory effort and able to speak in complete sentences Neuro General: patient oriented x3 Extrem Other: Minimal osteoarthritic changes of both hands Few fibromyalgia tender points Assessment & Plan Assessment & Plan (1) Osteoporosis: Comment: DEXA 8/21 L-Spine t score -3.1 started on bisphosphonates in 2017>> developed allergic side effects. 1 dose of Prolia in 11/2020 without any side effects then she moved from [place] to [place] Prolia again 08/27-02/24-09/24 Code(s): M81.0 - Age-related osteoporosis without current pathological fracture Qualifiers: Osteoporosis type: age-related Presence of current pathological fracture: without current pathological fracture Qualified Code(s): M81.0 - Age- related osteoporosis without current pathological fracture Plan: This is a 67-year-old female with osteoporosis for follow-up. On Prolia every 6 months. She received Prolia injection in clinic today. Will plan for Prolia injection in 6 months. Plan to repeat DEXA scan after next Prolia injection. Vitamin-D level not at target. Advised patient to increase her vitamin-D from 1000 units daily to 2000 units daily Labs before next visit in 6 months (2) Degenerative arthritis of lumbar spine: Code(s): M47.816 - Spondylosis without myelopathy or radiculopathy, lumbar region Qualifiers: Spinal osteoarthritis complication: without myelopathy or radiculopathy Qualified Code(s): M47.816 - Spondylosis without myelopathy or radiculopathy, lumbar region Plan: Start PT (3) Memory change: Code(s): R41.3 - Other amnesia Plan: Follow-up with PCP or neurologist Plan I spent 26 minutes reviewing patient's chart, evaluating patient, ordering diagnostic workup, counseling patient and documenting in the chart Orders: Orders Complete Blood Count Auto Diff 6 Months M81.0 - Age-related osteoporosis without current pathological fracture Comprehensive Met. Panel 6 Months M81.0 - Age-related osteoporosis without current pathological fracture Vitamin D 25-OH (D2 and D3) 6 Months Z13.21 - Encounter for screening for nutritional disorder Medications: Changed From cholecalciferol (vitamin D3) (Vitamin D3) 25 mcg PO DAILY 90 caps 1RF To cholecalciferol (vitamin D3) (Vitamin D3) 2,000 units PO DAILY 180 caps 1RF Coding Level of Care Code Est Pt Level 4 (67652) Diagnoses Age-related osteoporosis without current pathological fracture M81.0 Osteoporosis type: age-related Presence of current pathological fracture: without current pathological fracture Spondylosis of lumbar region without myelopathy or radiculopathy M47.816 Spinal osteoarthritis complication: without myelopathy or radiculopathy Memory change R41.3
[2023-09-07 12:31] VITALS: BP 118/66; PULSE 71; TEMP 36.4; O2SAT 98; BMI 26.0
== END 2023-09-07 12:58 | disposition home or self-care (01) ==
PROVIDERS: PCP Internal Medicine; Visit Provider Student in an Organized Health Care Education/Training Program
DX: M81.0 Age-related osteoporosis without current pathological fracture (principal); M47.816 Spondylosis without myelopathy or radiculopathy, lumbar region; R41.3 Other amnesia
CPT/HCPCS: 99214

== ENCOUNTER 2023-12-09 10:58 | Outpatient (AMB) | payer MEDICAID, SELFPAY ==
--- NOTE | 2023-12-09 11:29 | MHC.OFFWIV ---
Intake Vital Signs 12/09/23 11:30 Height 4 ft 11 in Weight 130 lb 4 oz BMI 26.3 BP 146/72 H Blood Pressure Location Rt brachial Position Sitting Respiration 14 Pulse 64 Pulse Source Pulse Oximeter Temp 97.9 F Temp Source Oral Pulse Oximetry (%) 95 Oxygen Delivery Method Room Air Intake Visit Reasons: Sinus Congestion & dizziness Intake Note: Sinus congestion and dizziness. Red, watery eyes for three weeks. Patient Tobacco Use Status: Never used Tobacco Allergies aspirin Allergy (Intermediate, Verified 12/09/23 11:30) Rash NSAIDS (Non-Steroidal Anti-Inflamma Allergy (Intermediate, Verified 12/09/23 11:30) Rash Penicillins Allergy (Intermediate, Verified 12/09/23 11:30) Rash Medication List - Last Reconciled 12/09/23 by Susy Fuller PA-C acetaminophen 500 mg PO Q6H PRN atorvastatin 40 mg PO DAILY carvedilol 6.25 mg PO BID cetirizine 10 mg PO DAILY cholecalciferol (vitamin D3) (Vitamin D3) 2,000 units PO DAILY denosumab (Prolia) 60 mg subcut [id number] escitalopram oxalate 5 mg PO DAILY fluticasone propionate 50 mcg/actuation (Allergy Relief (fluticasone)) 1 spray intranasal DAILY losartan 100 mg PO DAILY magnesium oxide 400 - 800 mg PO DAILY melatonin 3 mg orally 1-3 tabs q HS PRN; 30 days omeprazole 40 mg PO DAILY riboflavin (vitamin B2) 400 mg PO DAILY 90 days simethicone (Gas Relief (simethicone)) 125 mg PO BID-QID PRN triamcinolone acetonide 0.5% 1 appl topical DAILY PRN HPI Sinus Congestion & dizziness HPI Details Pt is 68 y/o female who presents today with complaints of sinus pain and pressure x 3 weeks. She states she has been using an antihistamine which helped slightly in the beginning and now it is getting worse. Her right ear is painful. No fever or chills. She denies any sore throat, swollen lymph nodes, cough or chest pain. She states that this sinus infection is causing vertigo. She is currently following with physical therapy here and being treated for her vertigo but she states that it is worse on her right side because of the fluid in her right ear. She normally follows with [facility]. [facility] Medical History High cholesterol Sleep apnea Osteoporosis Hypertension Trigger finger Carpal tunnel syndrome Surgical History History of 3 sections History of carpal tunnel release Hx of hysterectomy Family History Father Hypertension Mother Hypertension Arthritis Social History Household Members: Children Housing: [facility] Alcohol intake: current Alcohol intake frequency: holidays/special occasions only Alcohol type: wine Patient Tobacco Use Status: Never used Tobacco e-Cigarette/Vaping Use: Never Used Current occupational status: unemployed Sexual orientation: Straight/Heterosexual Gender identity: Female Physical Exam Vital Signs: Last Vital Signs Temp 97.9 F 12/09/23 11:30 Pulse 64 12/09/23 11:30 Resp 14 12/09/23 11:30 BP 146/72 H 12/09/23 11:30 Pulse Ox 95 12/09/23 11:30 Oxygen Delivery Method Room Air 12/09/23 11:30 BMI result Body Mass Index 26.3 Const Orientation/consciousness: patient oriented x3 HEENT Other: TM on right noted to have a small air-fluid level. TM on left WNL. Negative tug test bilaterally. There is maxillary sinus tenderness present. Nasal mucosa is erythematous and edematous with purulent drainage. No lymphadenopathy. Posterior oropharynx is WNL. Ears: hearing grossly normal bilaterally Neck Thyroid: Thyroid normal Lymphatic: no lymphadenopathy noted Resp Auscultation: clear to auscultation bilaterally Cardio Rate: regular rate Rhythm: regular rhythm Heart sounds: S1 normal heart sound present and S2 normal heart sound present Skin General skin exam: no rashes or lesions noted Neuro General: patient oriented x3, gait normal, no focal motor deficits and CN's II-XI intact bilaterally Assessment & Plan Assessment & Plan (1) Vertigo: Code(s): R42 - Dizziness and giddiness Plan: Currently being treated at physical therapy for this. (2) Bacterial sinusitis: Code(s): J32.9 - Chronic sinusitis, unspecified; B96.89 - Other specified bacterial agents as the cause of diseases classified elsewhere Plan: We will start patient on Nasacort. Advised to continue Zyrtec. We will start on doxycycline. Discussed risks and benefits and adverse effects of this medication including a photosensitivity rash. Follow up if no improvement or if anything worsens or changes. Patient understands and agrees with this plan. Medications: New triamcinolone acetonide (Nasacort Allergy) administer into each nostril 2 sprays intranasal DAILY 16.9 mL 0RF doxycycline hyclate 100 mg PO BID 20 tabs 0RF Coding Level of Care Code Est Pt Level 3 (72400) Diagnoses Vertigo R42 Bacterial sinusitis J32.9; B96.89
[2023-12-09 11:30] VITALS: BP 146/72; PULSE 64; RESP 14; TEMP 36.6; O2SAT 95; BMI 26.3
== END 2023-12-09 12:39 | disposition home or self-care (01) ==
PROVIDERS: PCP Internal Medicine; Visit Provider Physician Assistant
DX: R42 Dizziness and giddiness (principal); J32.9 Chronic sinusitis, unspecified; B96.89 Other specified bacterial agents as the cause of diseases classified elsewhere
CPT/HCPCS: 99213

== ENCOUNTER 2023-12-30 10:00 | Outpatient (RCR) | payer MEDICAID, SELFPAY | END 2024-08-07 07:30 | disposition home or self-care (01) | LOC: HO.PTWFD 10:00 | PROVIDERS: PCP Internal Medicine; Visit Provider Student in an Organized Health Care Education/Training Program | DX: M47.816 Spondylosis without myelopathy or radiculopathy, lumbar region (principal) | CPT/HCPCS: 95992; 97110; 97161; 97530; 97535 ==

== ENCOUNTER 2024-02-14 11:06 | Outpatient (AMB) | payer MEDICAID, SELFPAY ==
--- NOTE | 2024-02-14 11:09 | MHC.OFFVIS ---
Vital Signs 02/14/24 11:10 Height 4 ft 11 in Weight 130 lb BMI 26.3 BP 122/82 Blood Pressure Location Rt brachial Position Sitting Pulse 74 Pulse Source Pulse Oximeter Pulse Oximetry (%) 98 Oxygen Delivery Method Room Air Intake Visit Reasons: 6m follow up sleep - Conf Intake Note: Patient presents for 6 month follow up sleep. patient here for follow up state she wakes up without machine on her mind is slow and she feels groggy. Trestle Mainternance Laborer Required: Yes Trestle Mainternance Laborer Name: orlando scherer Information Interpreted: non-clinical & clinical Allergies aspirin Allergy (Intermediate, Verified 02/14/24 11:14) Rash NSAIDS (Non-Steroidal Anti-Inflamma Allergy (Intermediate, Verified 02/14/24 11:14) Rash Penicillins Allergy (Intermediate, Verified 02/14/24 11:14) Rash Medication List - Last Reconciled 02/14/24 by CALLUM Joiner acetaminophen 500 mg PO Q6H PRN atorvastatin 40 mg PO DAILY carvedilol 6.25 mg PO BID cetirizine 10 mg PO DAILY cholecalciferol (vitamin D3) (Vitamin D3) 2,000 units PO DAILY denosumab (Prolia) 60 mg subcut [id number] doxycycline hyclate 100 mg PO BID escitalopram oxalate 5 mg PO DAILY fluticasone propionate 50 mcg/actuation (Allergy Relief (fluticasone)) 1 spray intranasal DAILY losartan 100 mg PO DAILY magnesium oxide 400 - 800 mg PO DAILY melatonin 3 mg orally 1-3 tabs q HS PRN; 30 days omeprazole 40 mg PO DAILY riboflavin (vitamin B2) 400 mg PO DAILY 90 days simethicone (Gas Relief (simethicone)) 125 mg PO BID-QID PRN triamcinolone acetonide (Nasacort Allergy) 2 sprays intranasal DAILY triamcinolone acetonide 0.5% 1 appl topical DAILY PRN HPI Comments Details: 68-yr-old female presents for f/u visit. Pt denies any significant interval medical changes. Pt reports that she has been waking up without her CPAP mask on. She does not recall taking her CPAP mask off. She thinks the head straps are stretched out. She has been buying her own supplies- but has not changed her water chamber, tubing since she received the machine. She has frequent nasal congestion, especially at night. She uses Zyrtec regularly for yrs. Wonders about trying an alternate. She has been using Afrin almost nightly for months. She feels more forgetful. She is taking palauan classes and going to the library regularly to read. She does have migraine, but not recently. She tries to minimize triggers such as limiting chocolate and certain foods. Her migraine has visual aura. Uses Tylenol prn- helps some Cannot always use Magnesium d/t GI upset. Compliance Report Usage 01/15/2024 - 02/13/2024 Usage days 29/30 days (97%) genesis days >= 4 hours 5 days (17%) genesis days < 4 hours 24 days (80%) Average usage (days used) 2 hours 33 minutes Median usage (days used) 2 hours 42 minutes Total used hours (value since last reset - 02/13/2024) 5,891 hours AirSense 10 AutoSet Serial number [id number] Mode AutoSet Min Pressure 8 cmH2O Max Pressure 20 cmH2O EPR Fulltime EPR level 3 Response Standard Therapy Pressure Maximum pressure: 15.3 cmH2O Leaks - Maximum: 26.9 L/Min Residual events per hour- AHI: 3.7/hr [facility] Medical History High cholesterol Sleep apnea Osteoporosis Hypertension Trigger finger Carpal tunnel syndrome Surgical History History of 3 sections History of carpal tunnel release Hx of hysterectomy Family History Father Hypertension Mother Hypertension Arthritis Social History Household Members: Children Housing: Condominium Alcohol intake: current Alcohol intake frequency: holidays/special occasions only Alcohol type: wine Patient Tobacco Use Status: Never used Tobacco e-Cigarette/Vaping Use: Never Used Current occupational status: unemployed Sexual orientation: Straight/Heterosexual Gender identity: Female Physical Exam Vital Signs: Last Vital Signs Pulse 74 02/14/24 11:10 BP 122/82 02/14/24 11:10 Pulse Ox 98 02/14/24 11:10 Oxygen Delivery Method Room Air 02/14/24 11:10 BMI result Body Mass Index 26.3 Const General: cooperative and no acute distress Orientation/consciousness: patient oriented x3 Resp Effort & Inspection: normal respiratory effort and able to speak in complete sentences Neuro General: patient oriented x3 Cranial nerves: Yes CN's II-XII intact bilaterally Cognition (Neuro): normal cognition Psych Appearance: grossly normal Mental Status: mental status grossly normal Speech and movement: Normal speech and movement present Affect: normal affect Attitude: cooperative Assessment & Plan Assessment & Plan (1) JACKSON on CPAP: Code(s): G47.33 - Obstructive sleep apnea (adult) (pediatric); Z99.89 - Dependence on other enabling machines and devices Category: Medical (2) Migraine without aura: Code(s): G43.009 - Migraine without aura, not intractable, without status migrainosus Category: Medical Plan Stop Afrin- discussed this can cause rebound congestion. Trial Azelastine 137mg nasal spray- in hopes this improves APAP tolerance. Pt will discuss trying alternate to Zyrtec w/ PCP. Will equest CPAP mask fitting and new supplies. Continue APAP [id number] w/ goal of using > 4 hrs per night. Monitor migraines- continue Riboflavin, prn Magnesium, prn Tylenol. Future considerations- triptan trial. Monitor cognition. Optimizing PAP use may reduce cognitive s/s, as pt has severe JACKSON. Continue cognitive stimulating activities, such as [place] language courses. Medications: New azelastine administer into each nostril 2 sprays intranasal BID 30 days 30 mL 6RF Refilled riboflavin (vitamin B2) 400 mg PO DAILY 90 days 90 tabs 1RF Discontinued doxycycline hyclate Discontinued Reason: Patient Completed Course 100 mg PO BID 20 tabs 0RF Coding Level of Care Code Est Pt Level 4 (85515) Diagnoses JACKSON on CPAP G47.33; Z99.89 Migraine without aura G43.009
[2024-02-14 11:10] VITALS: BP 122/82; PULSE 74; O2SAT 98; BMI 26.3
== END 2024-02-14 12:10 | disposition home or self-care (01) ==
PROVIDERS: PCP Hospitalist; Visit Provider Nurse Practitioner Family
DX: G47.33 Obstructive sleep apnea (adult) (pediatric) (principal); Z99.89 Dependence on other enabling machines and devices; G43.009 Migraine without aura, not intractable, without status migrainosus
CPT/HCPCS: 99214

== ENCOUNTER → 2024-02-14 11:06 | Outpatient (BNVA) | payer MEDICAID, SELFPAY | PROVIDERS: PCP Hospitalist; Visit Provider Nurse Practitioner Family | DX: G47.33 Obstructive sleep apnea (adult) (pediatric) (principal); G43.009 Migraine without aura, not intractable, without status migrainosus; Z99.89 Dependence on other enabling machines and devices | CPT/HCPCS: 99212 ==

== ENCOUNTER 2024-03-01 08:50 | Outpatient (REF) | payer MEDICAID, SELFPAY ==
[2024-03-01 09:13] LABS: MANUAL DIFF FLAG NO
[2024-03-01 10:41] LABS: Basophils Percent Auto 0.2 % (0-2); Eosinophils Absolute Auto 0.1 X10*3/uL (0.0-0.4); Eosinophils Percent Auto 2.2 % (0-4); Hematocrit 35.1 % (37.0-47.0); Hemoglobin 11.5 g/dl (12.0-16.0); Imm Gran Abs Auto 0.02 X10*3/uL (0.00-0.03); Imm Gran Pct Auto 0.4 % (0.0-0.4); Lymphocytes Absolute Auto 1.7 X10*3/uL (1.2-4.9); Lymphocytes Percent Auto 32.6 % (20-40); Mean Corpuscular HGB Conc 32.8 g/dl (31.0-35.0); Mean Corpuscular Hemoglobin 27.2 pg (27.0-33.0); Mean Platelet Volume 11.5 fL (9.4-12.3); Monocytes Absolute Auto 0.4 X10*3/uL (0.1-1.2); Monocytes Percent Auto 7.3 % (2-11); Neutrophils Absolute Auto 2.9 x10*3/uL (2.0-8.3); Neutrophils Percent Auto 57.3 % (45-73); Platelet Count 227 X10*3/uL (160-400); Red Blood Count 4.23 X10*6/uL (4.20-5.50); Red Cell Distribution Width 13.6 % (11.0-16.0); White Blood Count 5.1 X10*3/uL (4.8-10.8)
[2024-03-01 11:21] LABS: Alanine Aminotransferase 20 U/L (0-31); Albumin Level 4.3 g/dL (3.5-5.0); Alkaline Phosphatase 51 U/L (39-117); Anion Gap 12 (12-20); Aspartate Amino Transferase 22 U/L (5-31); Bilirubin Total 0.9 mg/dL (0.0-1.0); Blood Urea Nitrogen 20 mg/dL (9-16); Calcium 9.7 mg/dL (8.4-10.2); Carbon Dioxide 29 mmol/L (22-29); Chloride 105 mmol/L (96-108); Estimated Glomerular Filt Rate > 60; Glucose Random 94 mg/dL (60-115); Sodium 142 mmol/L (135-145); Total Protein 7.3 g/dL (6.5-8.0)
[2024-03-07 15:19] LABS: Vitamin D 25-OH, D2 <4 ng/mL; Vitamin D 25-OH, D3 31 ng/mL; Vitamin D 25-OH, Total 31 ng/mL (30-100)
== END 2024-03-01 08:51 | disposition home or self-care (01) ==
LOC: HO.LAB 08:50
PROVIDERS: PCP Internal Medicine; Visit Provider Student in an Organized Health Care Education/Training Program
DX: M81.0 Age-related osteoporosis without current pathological fracture (principal); Z13.21 Encounter for screening for nutritional disorder
CPT/HCPCS: 36415; 80053; 82306; 85025

== ENCOUNTER 2024-03-09 10:03 | Outpatient (REF) | payer MEDICAID, SELFPAY ==
--- NOTE | ~2024-03-09 | MM_ITS ---
EXAMINATION: MM DIAGNOSTIC DIGITAL BREAST TOMOSYNTHESIS, BILATERAL CLINICAL INFORMATION: 6 month follow-up for left breast calcifications (final, to establish two-year stability). Patient also due for yearly. COMPARISON: Mammography: 09/07/2023, 03/02/2023, 08/28/2022, 02/23/2022 (BI-RADS 0), 02/09/2021. TECHNIQUE: Digital breast tomosynthesis is performed in both the craniocaudal and mediolateral oblique views along with computer-aided detection (CAD). Synthesized 2D images are generated from the tomosynthesis. In addition to standard views, spot magnification left CC and ML views were also obtained. FINDINGS: The breasts are heterogeneously dense, which may obscure small masses (ACR BI-RADS breast composition Category c). There are stable grouped calcifications in the retroareolar region of the left breast, anterior one third, just behind the nipple, which have not changed in morphology, number, or overall appearance. No aggressive changes. These have remained stable over 2 years and are benign. No further follow-up required. A few scattered punctate tiny calcifications are noted in both breasts, unchanged. There are no suspicious masses, new suspicious grouped calcifications, or areas of architectural distortion in either breast. The overall parenchymal pattern is stable from prior exams. There is no skin or axillary abnormality. MM/MM tomosynthesis diagnostic BI IMPRESSION: -There are no findings suspicious for malignancy in either breast. -Index calcifications of concern in the retroareolar left breast have remained stable and unchanged over 2 years and are hence benign. No further follow-up recommended. -Recommend the patient return to routine annual screening. ASSESSMENT: BI-RADS BI-RADS 2 - Benign Findings RECOMMENDATION: 1 year F/U Results were provided to the patient at time of visit by the technologist. This patient's information was entered into a reminder system with a target due date for their next mammogram. Electronically signed by: Ron Diana MD 03/09/2024 11:33 AM EDT
== END 2024-03-09 10:04 | disposition home or self-care (01) ==
LOC: HO.MAMMO 10:03
PROVIDERS: PCP Internal Medicine; Visit Provider Internal Medicine
DX: R92.1 Mammographic calcification found on diagnostic imaging of breast (principal)
CPT/HCPCS: 77062; 77066

== ENCOUNTER → 2024-03-09 11:00 | Outpatient (BNV) | payer MEDICAID, SELFPAY | PROVIDERS: PCP Internal Medicine; Visit Provider Radiology Diagnostic Radiology | DX: R92.1 Mammographic calcification found on diagnostic imaging of breast (principal); R92.333 Mammographic heterogeneous density, bilateral breasts | CPT/HCPCS: 77062; 77066 ==

== ENCOUNTER 2024-04-19 08:46 | Outpatient (REF) | payer MEDICAID, SELFPAY ==
[2024-04-19 11:20] LABS: Anion Gap 9 (12-20); Blood Urea Nitrogen 19 mg/dL (9-16); Calcium 9.8 mg/dL (8.4-10.2); Carbon Dioxide 29 mmol/L (22-29); Chloride 105 mmol/L (96-108); Estimated Glomerular Filt Rate > 60; Glucose Random 92 mg/dL (60-115); Potassium 4.1 mmol/L (3.3-5.1); Sodium 139 mmol/L (135-145)
[2024-04-25 15:19] LABS: Vitamin D 25-OH, D2 <4 ng/mL; Vitamin D 25-OH, D3 30 ng/mL; Vitamin D 25-OH, Total 30 ng/mL (30-100)
== END 2024-04-19 08:47 | disposition home or self-care (01) ==
LOC: HO.10HDL 08:46
PROVIDERS: Visit Provider Student in an Organized Health Care Education/Training Program
DX: E55.9 Vitamin D deficiency, unspecified (principal); M81.0 Age-related osteoporosis without current pathological fracture
CPT/HCPCS: 36415; 80048; 82306

== ENCOUNTER 2024-04-20 10:00 | Outpatient (AMB) | payer MEDICAID, SELFPAY ==
[2024-04-20 10:07] VITALS: BP 126/80; BMI 24.4
--- NOTE | 2024-04-20 10:07 | MHC.OFFVIS ---
Vital Signs 04/20/24 10:07 Height 4 ft 11 in Weight 121 lb BMI 24.4 BP 126/80 Intake Visit Reasons: TILE DITCHER annual exam Middle School Sports Coach Required: Yes Middle School Sports Coach Language: Jawbone Puller Services: Middle School Sports Coach Present (in person) Middle School Sports Coach Name: Eli MORRIS Information Interpreted: non-clinical & clinical Team Manager: Team Manager Present (Eli MORRIS) Accompanied by: Self / Same As Patient Allergies aspirin Allergy (Intermediate, Verified 04/20/24 10:12) Rash NSAIDS (Non-Steroidal Anti-Inflamma Allergy (Intermediate, Verified 04/20/24 10:12) Rash Penicillins Allergy (Intermediate, Verified 04/20/24 10:12) Rash Post menopausal: Yes HPI Comments Details: Presenting for annual exam. No complaints. Last Pap/HPV was many years ago, no history of abnormal Pap smear, the patient is status post hysterectomy with BSO for bleeding Last Mammogram was BI-RADS 2 in 03/28 Last Colonoscopy was 4 years ago, the next you colonoscopy according to patient will be in 6 years Last DEXA scan was in 02/23 showed osteoporosis, the patient had a consult with rheumatology about options of treatment and the patient has been on Prolia q.6 months [facility] Medical History High cholesterol Sleep apnea Osteoporosis Hypertension Trigger finger Carpal tunnel syndrome Surgical History History of 3 sections History of carpal tunnel release Hx of hysterectomy Family History Father Hypertension Mother Hypertension Arthritis Social History Household Members: Children [facility] Alcohol intake: current Alcohol intake frequency: holidays/special occasions only Alcohol type: wine Patient Tobacco Use Status: Never used Tobacco e-Cigarette/Vaping Use: Never Used Current occupational status: unemployed Sexual orientation: Straight/Heterosexual Gender identity: Female Female Reproductive History Menstrual Menopause type: surgical Total pregnancies: 3 Full term: 3 Number of Living Children: 3 Date of Mammogram: 03/09/24 Review of Systems Const All systems reviewed & are unremarkable except as noted in HPI and below Physical Exam Vital Signs: Last Vital Signs BP 126/80 04/20/24 10:07 BMI result Body Mass Index 24.4 Chest Chest palpation & inspection: normal inspection of the chest Breast/axilla inspection: normal inspection of the breasts and normal inspection of the axillae Breast/axilla palpation: normal palpation of the breasts General: Yes no CVA tenderness External Female Exam: normal external appearance and normal appearance of the urethra Speculum Exam - Vagina: normal appearance of the vagina, normal palpation, no lesions and no masses Speculum Exam - Cervix: normal appearance of the cervix, normal palpation, no lesions, no masses and nontender Bimanual exam- vagina & uterus: normal bimanual exam, normal palpation, uterine size normal, normal palpation, uterine shape normal, No Cervical tenderness present and non-tender Bimanual Exam- Adnexa, other: normal adnexae Back/Spine/Pelvis Back: no CVA tenderness Assessment & Plan Assessment & Plan (1) Well woman exam: Code(s): Z01.419 - Encounter for gynecological examination (general) (routine) without abnormal findings Category: Medical Plan: Co testing not indicated since the patient 's age is above 65 with no history of abnormal Pap smears last 25 years. Counseled the patient about the recommended dietary allowance of 1200 mg of Calcium & 800 IU of vitamin D. Instructions given the patient to schedule her next screening Mammogram in 03/28. The patient is scheduled with rheumatology in few days for follow-up/Prolia will defer DEXA scan to Rheumatology since she has been under their care The patient was instructed to perform monthly self-breast exams and to schedule an annual exam in a year; All questions answered and the patient verbalized understanding. Coding Level of Care Code Est Pt Prev Care >65y(27889) Diagnoses Well woman exam Z01.419
== END 2024-04-20 10:38 | disposition home or self-care (01) ==
PROVIDERS: PCP Hospitalist; Visit Provider Obstetrics & Gynecology
DX: Z01.419 Encounter for gynecological examination (general) (routine) without abnormal findings (principal)
CPT/HCPCS: 99397

== ENCOUNTER → 2024-04-20 10:00 | Outpatient (BNVA) | payer MEDICAID, SELFPAY | PROVIDERS: PCP Hospitalist; Visit Provider Obstetrics & Gynecology | DX: Z01.419 Encounter for gynecological examination (general) (routine) without abnormal findings (principal) | CPT/HCPCS: 99397 ==

== ENCOUNTER 2024-04-25 08:06 | Outpatient (AMB) | payer MEDICAID, SELFPAY ==
--- NOTE | 2024-04-25 08:09 | A.OFFVIS_ITS ---
Vital Signs 04/25/24 08:16 Height 4 ft 11 in Weight 125 lb 14.143 oz BMI 25.4 BP 115/62 Blood Pressure Location Rt brachial Position Sitting Pulse 61 Pulse Source Pulse Oximeter Pulse Oximetry (%) 96 Oxygen Delivery Method Room Air Intake Visit Reasons: osteoporosis/ Prolia inj Intake Note: Patient presents for Osteoporosis and Prolia injection. Nuclear Medicine Tech Required: No Nuclear Medicine Tech Services: Nuclear Medicine Tech Offered & Declined Allergies aspirin Allergy (Intermediate, Verified 04/25/24 08:13) Rash NSAIDS (Non-Steroidal Anti-Inflamma Allergy (Intermediate, Verified 04/25/24 08:13) Rash Penicillins Allergy (Intermediate, Verified 04/25/24 08:13) Rash Medication List - Last Reconciled 04/25/24 by Ting Mendoza MD acetaminophen 500 mg PO Q6H PRN atorvastatin 40 mg PO DAILY azelastine 2 sprays intranasal BID 30 days carvedilol 6.25 mg PO BID cetirizine 10 mg PO DAILY cholecalciferol (vitamin D3) (Vitamin D3) 2,000 units PO DAILY denosumab (Prolia) 60 mg subcut [id number] fluticasone propionate 50 mcg/actuation (Allergy Relief (fluticasone)) 1 spray intranasal DAILY losartan 100 mg PO DAILY triamcinolone acetonide (Nasacort Allergy) 2 sprays intranasal DAILY HPI Comments Details: This is a 68-year-old female with osteoporosis who returns for follow-up and Prolia injection. She states that she feels about the same. Continues to have intermittent low back pain. She has been playing tennis recently with her children. She states that she did not like the physical therapy facility here at [facility]. Initial history: this is a 66-year-old female who presents for evaluation of osteoporosis. Patient stated she was diagnosed with osteoporosis back in 2016 in [facility] and she was started on Fosamax. Patient took a few doses and developed urticarial like skin rashes. She also has history of allergies to aspirin, NSAIDs and penicillin. When she moved to [facility] she received 1 dose of Prolia in November of 2020. No reported side effects. Patient feels well overall. A few months ago she had left shoulder stiffness, she went to physical therapy and her shoulder range of motion has improved. [facility] Medical History High cholesterol Sleep apnea Osteoporosis Hypertension Trigger finger Carpal tunnel syndrome Surgical History History of 3 sections History of carpal tunnel release Hx of hysterectomy Family History Father Hypertension Mother Hypertension Arthritis Social History Household Members: Children [facility] Alcohol intake: current Alcohol intake frequency: holidays/special occasions only Alcohol type: wine Patient Tobacco Use Status: Never used Tobacco e-Cigarette/Vaping Use: Never Used Current occupational status: unemployed Sexual orientation: Straight/Heterosexual Gender identity: Female Female Reproductive History Menstrual Menopause type: surgical Total pregnancies: 3 Full term: 3 Number of Living Children: 3 Review of Systems Musc Reports back pain and Reports arthralgias Physical Exam Vital Signs: Last Vital Signs Pulse 61 04/25/24 08:16 BP 115/62 04/25/24 08:16 Pulse Ox 96 04/25/24 08:16 Oxygen Delivery Method Room Air 04/25/24 08:16 BMI result Body Mass Index 25.4 Const General: cooperative, healthy appearing and comfortable Nutritional Appearance: average body habitus Orientation/consciousness: patient oriented x3 HEENT Other: No dental caries, multiple fillings Head: Yes normocephalic and Yes atraumatic Resp Effort & Inspection: normal respiratory effort and able to speak in complete sentences Neuro General: patient oriented x3 Extrem Other: Minimal osteoarthritic changes of both hands Few fibromyalgia tender points Office Meds Prolia 60 mg/mL subcutaneous syringe Performing Provider: Ting Mendoza MD Performing Location: [facility] Rheumatology Administered by: Ting Mendoza MD on 04/25/24 08:37 Dose Route Admin Location Dispensed Lot Number Expiration Date [facility] [employer] 60 mg subcut 1 mL [id number] 09/01/26 64997-256-74 [facility] Assessment & Plan Assessment & Plan (1) Osteoporosis: Comment: DEXA 02/22 L-Spine t score -3.1 started on bisphosphonates in 2017>> developed allergic side effects. 1 dose of Prolia in 11/2020 without any side effects then she moved from [place] to [place] Prolia again 08/2022-02/2023-09/25-04/2024 Code(s): M81.0 - Age-related osteoporosis without current pathological fracture Category: Medical Qualifiers: Osteoporosis type: age-related Presence of current pathological fracture: without current pathological fracture Qualified Code(s): M81.0 - Age- related osteoporosis without current pathological fracture Plan: This is a 68-year-old female with osteoporosis for follow-up. On Prolia every 6 months. She received Prolia injection in clinic today. Repeat Prolia in 5 months. If DEXA improving, would continue Prolia. If not, consider switching Continue with vitamin-D supplementation Labs before next visit in 6 months (2) Degenerative arthritis of lumbar spine: Code(s): M47.816 - Spondylosis without myelopathy or radiculopathy, lumbar region Category: Medical Qualifiers: Spinal osteoarthritis complication: without myelopathy or radiculopathy Qualified Code(s): M47.816 - Spondylosis without myelopathy or radiculopathy, lumbar region Plan: Referred to PT Plan I spent 26 minutes reviewing patient's chart, evaluating patient, ordering diagnostic workup, counseling patient and documenting in the chart Orders: Orders Collagen Type I C-Telopeptide 6 Months M81.0 - Age-related osteoporosis without current pathological fracture Comprehensive Met. Panel 6 Months M81.0 - Age-related osteoporosis without current pathological fracture XR DEXA axial skeleton 09/04/24 M81.0 - Age-related osteoporosis without current pathological fracture Vitamin D 25-OH Total 6 Months E55.9 - Vitamin D deficiency, unspecified AMB Denosumab Injection Patient Supplied Today M81.0 - Age-related osteoporosis without current pathological fracture Coding Level of Care Code Est Pt Level 4 (07635) Diagnoses Age-related osteoporosis without current pathological fracture M81.0 Osteoporosis type: age-related Presence of current pathological fracture: without current pathological fracture Spondylosis of lumbar region without myelopathy or radiculopathy M47.816 Spinal osteoarthritis complication: without myelopathy or radiculopathy
[2024-04-25 08:16] VITALS: BP 115/62; PULSE 61; O2SAT 96; BMI 25.4
== END 2024-04-25 08:41 | disposition home or self-care (01) ==
PROVIDERS: PCP Internal Medicine; Visit Provider Student in an Organized Health Care Education/Training Program
DX: M81.0 Age-related osteoporosis without current pathological fracture (principal); M47.816 Spondylosis without myelopathy or radiculopathy, lumbar region
CPT/HCPCS: 99214

== ENCOUNTER → 2024-04-25 08:06 | Outpatient (BNVA) | payer MEDICAID, SELFPAY | PROVIDERS: PCP Internal Medicine; Visit Provider Student in an Organized Health Care Education/Training Program | DX: M81.0 Age-related osteoporosis without current pathological fracture (principal); M47.816 Spondylosis without myelopathy or radiculopathy, lumbar region; Z79.620 Long term (current) use of immunosuppressive biologic | CPT/HCPCS: 96372; 99212; J0897 ==

== ENCOUNTER 2024-08-28 09:28 | Outpatient (AMB) | payer MEDICAID, SELFPAY ==
--- NOTE | 2024-08-28 09:33 | MHC.OFFVIS ---
Vital Signs 08/28/24 09:39 Height 4 ft 11 in Weight 128 lb 2 oz BMI 25.9 BP 120/70 Blood Pressure Location Lt brachial Position Sitting Pulse 81 Pulse Source Pulse Oximeter Pulse Oximetry (%) 99 Oxygen Delivery Method Room Air Intake Visit Reasons: 6m follow up sleep Dental Office Manager Required: Yes Dental Office Manager Language: Evening Sitter Services: Dental Office Manager Offered & Declined ([facility] [place] Manager services refused ) Accompanied by: Self / Same As Patient Allergies aspirin Allergy (Intermediate, Verified 08/28/24 09:39) Rash NSAIDS (Non-Steroidal Anti-Inflamma Allergy (Intermediate, Verified 08/28/24 09:39) Rash Penicillins Allergy (Intermediate, Verified 08/28/24 09:39) Rash HPI Comments Details: 68-yr-old female presents for f/u visit. Pt denies any significant interval medical changes. Pt reports that she has been waking up without her CPAP mask on. She does not recall taking her CPAP mask off. She thinks the head straps are stretched out. She has been buying her own supplies- but has not changed her water chamber and tubing since she received the machine. She would like to go for a mask fitting to see if she can better tolerate the pressures. She has frequent nasal congestion, due to allergies especially at night. She uses Zyrtec regularly for yrs. She wonders if trying an alternative drug would be better d/t SE. She has been using Afrin almost nightly for months and will start implementing with nasal saline. She feels more forgetful due to stress with word finding difficulty as she is not a grayling Montenegrin speaker. She is taking Montenegrin classes and going to the library regularly to read and socializes at Tennis classes. She does have migraine, but not recently. She tries to minimize triggers such as limiting chocolate and certain foods. Her migraine has visual aura. Uses Tylenol prn- helps some Cannot always use Magnesium d/t GI upset. Compliance Report Usage 05/20/2024 - 08/17/2024 Usage days 77/90 usage days >= 4 hours 33 days Average usage (days used) 3 hours and 3 min Auto Set Min Pressure 8 cmH2O Max Pressure [id number] Median pressure: 9.5 cmH2O Leaks - Maximum: 7.3 to 46L/Min Residual events per hour- AHI: 2.3/hr [facility] Medical History Vitamin D deficiency High cholesterol Sleep apnea Osteoporosis Hypertension Trigger finger Carpal tunnel syndrome Surgical History History of 3 sections History of carpal tunnel release Hx of hysterectomy Family History Father Hypertension Mother Hypertension Arthritis Social History Household Members: Children Housing: [facility] Alcohol intake: current Alcohol intake frequency: holidays/special occasions only Alcohol type: wine Patient Tobacco Use Status: Never used Tobacco e-Cigarette/Vaping Use: Never Used Current occupational status: unemployed Sexual orientation: Straight/Heterosexual Gender identity: Female Review of Systems Const All systems reviewed & are unremarkable except as noted in HPI and below Physical Exam Vital Signs: Last Vital Signs Pulse 81 08/28/24 09:39 BP 120/70 08/28/24 09:39 Pulse Ox 99 08/28/24 09:39 Oxygen Delivery Method Room Air 08/28/24 09:39 BMI result Body Mass Index 25.9 Const General: cooperative and no acute distress Orientation/consciousness: patient oriented x3 Resp Effort & Inspection: normal respiratory effort and able to speak in complete sentences Neuro General: patient oriented x3 Cranial nerves: Yes CN's II-XII intact bilaterally Cognition (Neuro): normal cognition Psych Appearance: grossly normal Mental Status: mental status grossly normal Speech and movement: Normal speech and movement present Affect: normal affect Attitude: cooperative Results Reviewed Results Reviewed: Compliance Report Usage 05/20/2024 - 08/17/2024 Usage days 77/90 usage days >= 4 hours 33 days Average usage (days used) 3 hours and 3 min Auto Set Min Pressure 8 cmH2O Max Pressure [id number] Median pressure: 9.5 cmH2O Leaks - Maximum: 7.3 to 46L/Min Residual events per hour- AHI: 2.3/hr Assessment & Plan Assessment & Plan (1) JACKSON on CPAP: Code(s): G47.33 - Obstructive sleep apnea (adult) (pediatric); Z99.89 - Dependence on other enabling machines and devices Category: Medical (2) CPAP (continuous positive airway pressure) dependence: Code(s): Z99.89 - Dependence on other enabling machines and devices Category: Medical (3) Cervicalgia of zscrvwpf-mrppija-dxidi region: Code(s): M54.2 - Cervicalgia Category: Medical (4) Sleep apnea: Code(s): G47.30 - Sleep apnea, unspecified Category: Medical Qualifiers: Sleep apnea type: obstructive Qualified Code(s): G47.33 - Obstructive sleep apnea (adult) (pediatric) (5) Fatigue due to sleep pattern disturbance: Code(s): R53.83 - Other fatigue; G47.9 - Sleep disorder, unspecified Category: Medical (6) Migraine without aura: Code(s): G43.009 - Migraine without aura, not intractable, without status migrainosus Category: Medical Qualifiers: Status migrainosus presence: without status migrainosus Intractability: intractable Qualified Code(s): G43.019 - Migraine without aura, intractable, without status migrainosus Plan Stop Afrin- discussed this can cause rebound congestion. Trial Azelastine 137mg nasal spray- in hopes this improves APAP tolerance. Pt will discuss trying alternate to Zyrtec w/ PCP. Start using Nasal Saline Rinse to alternate between Afrin and Azelastine. Will request CPAP mask fitting and new supplies. Continue APAP [id number] w/ goal of using > 4 hrs per night. Monitor migraines- continue Riboflavin, prn Magnesium, prn Tylenol. Future considerations- triptan trial. Monitor cognition, will conduct MMSE at next visit. Continue Optimizing PAP use as it may reduce cognitive s/s, as pt has severe JACKSON. Continue cognitive stimulating activities, such as Montenegrin language courses, social activities, music and dance. F/U in 3 months. Coding Level of Care Code Est Pt Level 3 (20954) Diagnoses JACKSON on CPAP G47.33; Z99.89 CPAP (continuous positive airway pressure) dependence Z99.89 Cervicalgia of paynfcgi-anmtggv-vxutt region M54.2 Obstructive sleep apnea syndrome G47.33 Sleep apnea type: obstructive Fatigue due to sleep pattern disturbance R53.83; G47.9 Intractable migraine without aura and without status migrainosus G43.019 Status migrainosus presence: without status migrainosus Intractability: intractable Time Spent (min) 30
[2024-08-28 09:39] VITALS: BP 120/70; PULSE 81; O2SAT 99; BMI 25.9
--- OUTSIDE RECORDS SUMMARY | 2024-08-28 10:16 | XMS_ITS | Clinical Summary ---
Author Organization [address] [place] [address] Address [address] [place] [address] Phone Care Team Providers Care Theatrical Variety Agent Name Role Phone Subha Rivera SISI Primary Care Provider Allergies Active Allergy Reactions Criticality Noted Date Comments Alendronate Sodium 10/06/2022 Aspirin 12/19/2021 Nsaids (Non-Steroidal Anti-I nflammatory Drug) 12/19/2021 Penicillins 12/19/2021 Medications clopidogreL (PLAVIX) 75 mg tablet Take 1 tablet (75 mg total) by mouth 1 (one) time each day. Active CHOLECALCIFEROL , VITAMIN D3, ORAL Take by mouth. Active RIBOFLAVIN, VITAMIN B2, ORAL Take by mouth. Active MAGNESIUM ORAL Take by mouth. Active losartan (COZAAR) 100 mg tablet Take 1 tablet (100 mg total) by mouth 1 (one) time each day. Active atorvastatin (LIPITOR) 20 mg tablet Take 1 tablet (20 mg total) by mouth 1 (one) time each day. Active carvedilol CR (COREG CR) 10 mg 24 hr capsule Take 1 capsule (10 mg total) by mouth 1 (one) time each day. Active cetirizine (ZyrTEC) 10 mg capsule Take by mouth. Active Active Problems Problem Noted Date Diagnosed Date Left carpal tunnel syndrome 12/19/2021 Right carpal tunnel syndrome 12/19/2021 Trigger finger of left thumb 12/19/2021 Trigger finger, left middle finger 12/19/2021 Surgical History Surgery Date Site/Laterality Comments HYSTERECTOMY PROCEDURE: HISTORICAL HYSTERECTOMY APPENDECTOMY PROCEDURE: LA APPENDECTOMY Medical History Medical History Date Comments Essential hypertension DX:Essent ial hypertension Sleep apnea DX:Sleep apnea Hypercholesterolemia DX:Hypercho lesterolemia Social History Tobacco Use Types Packs/Day Years Used Date Smoking Tobacco: Never Smokeless Tobacco: Never Alcohol Use Standard Drinks/Week Comments Yes 0 (1 standard drink = 0.6 oz pur e alcohol) Comments Unknown Sex and Gender Information Value Date Recorded Sex Assigned at Not on file Legal Sex Female 5:19 AM EST Gender Identity Not on file Sexual Orientation Not on file Obstetrics History Last Filed Vital Signs Vital Sign Reading Time Taken Comments Blood Pressure - - Pulse - - Temperature - - Respiratory Rate - - Oxygen Saturation - - Inhaled Oxygen Concentration - - Weight 57.6 kg (127 lb) 10/06/2022 10:59 AM EDT Height 144.8 cm (4' 9 ) 03/31/2022 10:09 AM EDT Body Mass Index 27.48 03/31/2022 10:09 AM EDT Plan of Treatment Upcoming Encounters Date Type Department Care Team ([facility] st Contact Info) Description 10/06/2024 10:30 AM EDT Consult Orthopedic Surgery - [place] 175 [facility] [address] [place] [address] Marita Dougherty MD 175 [facility] [address] [place] [address] Health Maintenance Due Date Last Done Comments Breast Cancer Screening 1955 DTaP,Tdap,and Td Vaccines (1 - Tdap) 11/25/1975 Pneumococcal Vaccine: 50+ Ye ars (1 of 1 - PCV) 2006 Zoster Vaccines (1 of 2) 2006 Colorectal Cancer Screening: Colonoscopy 06/14/2022 Depression Screening 06/14/2022 Falls Risk Assessment 06/14/2022 Hepatitis C Screening 06/14/2022 Osteoporosis Screening (Bone Density Screening) 06/14/2022 Social Influencers of Health Screening 06/14/2022 COVID-19 Vaccine ( - 2023-2 5 season) 2024 Influenza Vaccine (#1) 2024 RSV Immunization Patients 60 + Years Old (1 - 1-dose 75+ series) 11/25/2031 HIB Vaccines Aged Out No longer eligi ble based on patient's age to complete this topic HPV Vaccines Aged Out No longer eligi ble based on patient's age to complete this topic Hepatitis A Vaccines Aged Out No long er eligible based on patient's age to complete this topic Hepatitis B Vaccines Aged Out No long er eligible based on patient's age to complete this topic IPV Vaccines Aged Out No longer eligi ble based on patient's age to complete this topic MMR Vaccines Aged Out No longer eligi ble based on patient's age to complete this topic Meningococcal ACWY Vaccine Aged Out N o longer eligible based on patient's age to complete this topic Meningococcal B Vacine Aged Out No lo nger eligible based on patient's age to complete this topic RSV Immunization Patients Un alexander 20 months Aged Out No longer eligible b ased on patient's age to complete this topic Varicella Vaccines Aged Out No longer eligible based on patient's age to complete this topic Insurance [place]ICA[place] - [place] Care Teams Theatrical Variety Agent Relationship Specialty Start Date End Date Subha Rivera NP [address] [place] [address] [address] [place] [address] PCP - General 10/24/21
== END 2024-08-28 10:29 | disposition home or self-care (01) ==
PROVIDERS: PCP Hospitalist; Visit Provider Physician Assistant Medical
DX: G47.33 Obstructive sleep apnea (adult) (pediatric) (principal); Z99.89 Dependence on other enabling machines and devices; M54.2 Cervicalgia; R53.83 Other fatigue; G47.9 Sleep disorder, unspecified; G43.019 Migraine without aura, intractable, without status migrainosus
CPT/HCPCS: 99213

== ENCOUNTER → 2024-08-28 09:28 | Outpatient (BNVA) | payer MEDICAID, SELFPAY | PROVIDERS: PCP Hospitalist; Visit Provider Physician Assistant Medical | DX: G47.33 Obstructive sleep apnea (adult) (pediatric) (principal); G47.9 Sleep disorder, unspecified; R53.83 Other fatigue; M54.2 Cervicalgia; G43.019 Migraine without aura, intractable, without status migrainosus; Z99.89 Dependence on other enabling machines and devices | CPT/HCPCS: 99212 ==

== ENCOUNTER 2024-09-05 10:41 | Outpatient (REF) | payer MEDICAID, SELFPAY ==
--- NOTE | ~2024-09-05 | MM_ITS ---
EXAMINATION: DXA BONE DENSITY AXIAL HISTORY: Estrogen deficiency TECHNIQUE: Field Agent Dual energy absorptiometry (DEXA) of the lumbar spine, total left hip, and femoral neck was performed. COMPARISON: Comparison is made with the prior examination dated 02/05/2022. FINDINGS: The bone mineral density of the lumbar spine is 0.886 with a T-score of -2.4, and a Z-score of -0.6. This represents a BMD change of 9.5% compared to the prior exam. This is statistically significant. The bone mineral density of the left total hip is 0.870 with a T-score of -1.1, and a Z-score of 0.4. This represents BMD change of -1.5% compared to the prior exam. This is not statistically significant. The bone mineral density of the left femoral neck is 0.838 with a T-score of -1.4, and a Z-score of 0.3. This represents BMD change of 4.4% compared to the prior exam. FRACTURE RISK: The FRAX index suggests a ten year probability of major osteoporotic fracture of 5.3%, and of hip fracture 0.6%. MM/XR DEXA axial skeleton IMPRESSION: Based on bone mineral density, and according to World Health Organization (WHO) criteria, the diagnosis is consistent with osteopenia. All bone density values are in grams per centimeter squared (g/cm2). Statistically, 68% of repeat scans fall within 1 SD (+/- 0.010 g/cm2 for AP spine L1-L4) and 1 SD (+/- 0.012 g/cm2 for femur total) FRAX is a trademark of the [employer] Metabolic Bone Disease, a World Health Organization (WHO) Collaborating Center. Electronically signed by: Johnathan Meek MD 09/08/2024 07:14 AM [facility]
--- OUTSIDE RECORDS SUMMARY | 2024-09-05 13:04 | XMS_ITS | Clinical Summary ---
Author Organization [address] [place] [address] Address [address] [place] [address] Phone Care Team Providers Care Oil Field Pumper Name Role Phone Subha Rivera SISI Primary Care Provider [phone] Allergies Active Allergy Reactions Criticality Noted Date [...] Comments HYSTERECTOMY PROCEDURE: HISTORICAL HYSTERECTOMY APPENDECTOMY PROCEDURE: HI APPENDECTOMY Medical History Medical History Date Comments [...] Upcoming Encounters Date Type Department Care Team ([facility] st Contact Info) Description 10/06/2024 10:30 AM EDT Consult Orthopedic Surgery - [place] 175 [facility] [address] [place] [address] Marita Doguherty MD 175 [facility] [address] [place] [address] Health Maintenance Due Date Last [...] topic Insurance MEDICAID - [place] Care Teams Oil Field Pumper Relationship Specialty Start Date End Date Subha Rivera NP [address] [place] [address] [address] [place] [address] PCP - General 10/24/21
== END 2024-09-05 10:42 | disposition home or self-care (01) ==
LOC: HO.MAMMO 10:41
PROVIDERS: PCP Internal Medicine; Visit Provider Student in an Organized Health Care Education/Training Program
DX: M81.0 Age-related osteoporosis without current pathological fracture (principal)
CPT/HCPCS: 77080

== ENCOUNTER → 2024-09-05 11:00 | Outpatient (BNV) | payer MEDICAID, SELFPAY | PROVIDERS: PCP Internal Medicine; Visit Provider Radiology Diagnostic Radiology | DX: E28.39 Other primary ovarian failure (principal) | CPT/HCPCS: 77085 ==

== ENCOUNTER 2024-10-27 09:16 | Outpatient (REF) | payer MEDICAID, SELFPAY ==
--- OUTSIDE RECORDS SUMMARY | 2024-10-27 09:27 | XMS_ITS | Clinical Summary ---
Author Organization [address] [place] [address] Address [address] [place] [address] Phone Care Team Providers Care Hvac Manager Name Role Phone Subha Rivera SISI Primary [...] Comments HYSTERECTOMY PROCEDURE: HISTORICAL HYSTERECTOMY APPENDECTOMY PROCEDURE: OK APPENDECTOMY Medical History Medical History Date Comments [...] Upcoming Encounters Date Type Department Care Team ([facility] st Contact Info) Description 11/14/2024 11:00 AM EDT Consult Orthopedic Surgery - [place] 175 [facility] [address] [place] [address] Marita Dougherty MD 175 [facility] [address] [place] [address] Health Maintenance Due Date Last [...] - 2023-2 5 season) 2024 Influenza Vaccine (Season Ended) 2025 RSV Immunization Adult Patie nts (1 - 1-dose 75+ series) 11/25/2031 HIB [...] age to complete this topic Meningococcal B Vaccine Aged Out No l onger eligible based on patient's age to complete this topic RSV Immunization Patients Un alexander 20 months Aged Out No longer eligible b ased on patient's age to complete this topic Varicella Vaccines Aged Out No longer eligible based on patient's age to complete this topic Insurance [place]ICA[place] - [place] Care Teams Hvac Manager Relationship Specialty Start Date End Date Subha Rivera NP [address] [place] [address] [address] [place] [address] PCP - General 10/24/21
[2024-10-27 11:07] LABS: Alanine Aminotransferase 23 U/L (0-31); Albumin Level 4.3 g/dL (3.5-5.0); Alkaline Phosphatase 46 U/L (39-117); Anion Gap 10 (12-20); Aspartate Amino Transferase 27 U/L (5-31); Bilirubin Total 0.8 mg/dL (0.0-1.0); Blood Urea Nitrogen 18 mg/dL (9-16); Calcium 9.7 mg/dL (8.4-10.2); Carbon Dioxide 27 mmol/L (22-29); Chloride 107 mmol/L (96-108); Estimated Glomerular Filt Rate > 60; Glucose Random 84 mg/dL (60-115); Potassium 4.1 mmol/L (3.3-5.1); Sodium 140 mmol/L (135-145); Total Protein 7.4 g/dL (6.5-8.0); Vitamin D 25-OH Total 64.3 ng/mL (>30)
[2024-10-31 13:24] LABS: Collagen Type I C-Telopeptide 72 pg/mL (see note)
== END 2024-10-27 09:17 | disposition home or self-care (01) ==
LOC: HO.LAB 09:16
PROVIDERS: PCP Internal Medicine; Visit Provider Student in an Organized Health Care Education/Training Program
DX: M81.0 Age-related osteoporosis without current pathological fracture (principal); E55.9 Vitamin D deficiency, unspecified
CPT/HCPCS: 36415; 80053; 82306; 82523

== ENCOUNTER 2024-12-06 10:04 | Outpatient (AMB) | payer MEDICAID, SELFPAY ==
--- NOTE | 2024-12-06 10:16 | A.OFFVIS_ITS ---
Vital Signs 12/06/24 10:18 Height 4 ft 11 in Weight 129 lb 2 oz BMI 26.1 BP 120/72 Blood Pressure Location Lt brachial Position Sitting Pulse 81 Pulse Source Pulse Oximeter Pulse Oximetry (%) 97 Oxygen Delivery Method Room Air Intake Visit Reasons: Follow up Intake Note: Patient presents follow up JACKSON/Migraine. Compliance in chart(89/90days, >=4hrs- 56%, Average usage- 4hrs 2 min, Med pressure-9.8, Med leak-4.6, AHI-1.9). Patient states tends to take off mask in middle of night. Worried because patient son told patient snores and stops breathing. Patient states low energy some days. Circulation Librarian Required: Yes Circulation Librarian Services: Circulation Librarian Offered & Declined Circulation Librarian Name: self Accompanied by: Self / Same As Patient Allergies aspirin Allergy (Intermediate, Verified 12/06/24 10:21) Rash NSAIDS (Non-Steroidal Anti-Inflamma Allergy (Intermediate, Verified 12/06/24 10:21) Rash Penicillins Allergy (Intermediate, Verified 12/06/24 10:21) Rash HPI Comments Details: 69-yr-old female presents for sleep apnea f/u visit. She takes off her mask at night, and does not recall doing it at night. Her son tells her she stops breathing,snores at night when her mouth is opened she continues to have low energy. She stays active plays tennis, Pt denies any significant interval medical changes. She has an MRi with ARNULFO shah last week, aneurysom? She thinks the head straps are stretched out, and she has been buying her own supplies. She has frequent nasal congestion, due to allergies especially at night. She uses Zyrtec regularly for yrs. She wonders if trying an alternative drug would be better d/t SE. She has been using Afrin almost nightly for months and will start implementing with nasal saline. Cognitive decline she feels more forgetful due to stress with word finding difficulty as she is not a level[place] Greenlandic speaker. She is taking Greenlandic classes and going to the library regularly to read and socializes at Tennis classes. She makes a list and remembers better. Her lack of attention and focus has improved. She is learning Telugu with her daughter to help improve her cognitive abilities. She washes her mask and tubing, changes filters, and fills reservoir as needed. Labs are pending. [facility] Medical History Vitamin D deficiency High cholesterol Sleep apnea Osteoporosis Hypertension Trigger finger Carpal tunnel syndrome Surgical History History of 3 sections History of carpal tunnel release Hx of hysterectomy Family History Father Hypertension Mother Hypertension Arthritis Social History Household Members: Children Housing: [facility] Alcohol intake: current Alcohol intake frequency: holidays/special occasions only Alcohol type: wine Patient Tobacco Use Status: Never used Tobacco e-Cigarette/Vaping Use: Never Used Current occupational status: unemployed Sexual orientation: Straight/Heterosexual Gender identity: Female Physical Exam Vital Signs: Last Vital Signs Pulse 81 12/06/24 10:18 BP 120/72 12/06/24 10:18 Pulse Ox 97 12/06/24 10:18 Oxygen Delivery Method Room Air 12/06/24 10:18 BMI result Body Mass Index 26.1 Const General: cooperative and no acute distress Orientation/consciousness: patient oriented x3 Eyes Pupils: Equal, round and reactive pupils present Resp Effort & Inspection: normal respiratory effort and able to speak in complete sentences Neuro General: patient oriented x3 and moves all extremities Cranial nerves: Yes CN's II-XII intact bilaterally, Yes Equal, round and reactive pupils present, Yes Bilaterally intact EOM present, Yes Normal facial strength present and Yes Midline tongue present Cognition (Neuro): normal cognition Gait exam (Neuro): Normal gait present Psych Appearance: grossly normal Affect: normal affect Attitude: cooperative Results Reviewed Results Reviewed: JACKSON compliance Report 09/2024 to December 2024 Total usage is 89/90 days >4 hours is 50days 56% press 8-20cm H20 median press 9.8 to 16.2cmH20 Leaks Median 4.6 and AHI is 1.9/ hr. Assessment & Plan Assessment & Plan (1) JACKSON on CPAP: Code(s): G47.33 - Obstructive sleep apnea (adult) (pediatric); Z99.89 - Dependence on other enabling machines and devices Category: Medical (2) Fatigue due to sleep pattern disturbance: Code(s): R53.83 - Other fatigue; G47.9 - Sleep disorder, unspecified Category: Medical (3) Migraine without aura: Code(s): G43.009 - Migraine without aura, not intractable, without status migrainosus Category: Medical Qualifiers: Status migrainosus presence: without status migrainosus Intractability: intractable Qualified Code(s): G43.019 - Migraine without aura, intractable, without status migrainosus Plan Stop Afrin- discussed this can cause rebound congestion. Trial Azelastine 137mg nasal spray- in hopes this improves APAP tolerance. Pt will discuss trying alternate to Zyrtec w/ PCP. Start using Nasal Saline Rinse to alternate between Afrin and Azelastine. Will request CPAP mask fitting and new supplies. Continue APAP [id number] w/ goal of using > 4 hrs per night. Monitor migraines- continue Riboflavin, prn Magnesium, prn Tylenol. Future considerations- triptan trial. Monitor cognition, improving. Continue Optimizing PAP use as it may reduce cognitive s/s, as pt has severe JACKSON. Continue cognitive stimulating activities, such as Greenlandic language courses, social activities, music and dance. F/U in 6 months. Medications: Refilled cholecalciferol (vitamin D3) (Vitamin D3) 50 mcg (2 x 25 mcg (1,000 unit)) PO DAILY 180 caps 1RF E55.9 - Vitamin D deficiency, unspecified Patient Instructions: Sleep Hygiene provided: set a scheduled bedtime and wake time to help regulate the circadian rhythm and balance the release of pituitary hormones. Sleep in a dark room, temperatures below 68 degrees, and no devices n bed. Limit caffeinated products 6 hours prior to bed, and limit fluids 2-4 hours prior to bed. Gentle night yoga, diffusing essential oils, and playing soft music can be relaxing. Coding Level of Care Code Est Pt Level 4 (53375) Diagnoses JACKSON on CPAP G47.33; Z99.89 Fatigue due to sleep pattern disturbance R53.83; G47.9 Intractable migraine without aura and without status migrainosus G43.019 Status migrainosus presence: without status migrainosus Intractability: intractable Time Spent (min) 30 Comment Improving
[2024-12-06 10:18] VITALS: BP 120/72; PULSE 81; O2SAT 97; BMI 26.1
--- OUTSIDE RECORDS SUMMARY | 2024-12-06 10:41 | XMS_ITS | Encounter Summary ---
Author Organization [employer] Address [address] [place] [address] Care Team Providers Care Triage Licensed Practical Nurse Name Role Phone Subha Rivera MINERAL SURVEYING TECHNICIAN Primary Care Provider [phone] Reason for Visit * Reason Comments Consult Pain, numbness/tingl ing Consult Swollen and pain fro m an injury yesterday, 12/03/24 playing tennis Encounter Details Date Type Department Care Team (Late st Contact Info) Description 12/04/2024 10:15 AM EDT Consult Orthopedic Surgery - [place] [address] [phone] Marita Dougherty MD 175 [facility] [address] [place] [phone] Pain of right hand (Primary Dx) Social History Tobacco Use Types Packs/Day Years Used Date Smoking Tobacco: Never Smokeless Tobacco: Never Alcohol Use Standard Drinks/Week Comments Yes 0 (1 standard drink = 0.6 oz pur e alcohol) Comments Unknown Sex and Gender Information Value Date Recorded Sex Assigned at Not on file Legal Sex Female 5:19 AM EST Gender Identity Not on file Sexual Orientation Not on file documented as of this encounter Last Filed Vital Signs Vital Sign Reading Time Taken Comments Blood Pressure - - Pulse - - Temperature - - Respiratory Rate - - Oxygen Saturation - - Inhaled Oxygen Concentration - - Weight 59 kg (130 lb) 12/04/2024 10:04 AM EDT Height 144.8 cm (4' 9 ) 12/04/2024 10:04 AM EDT Body Mass Index 28.13 12/04/2024 10:04 AM EDT documented in this encounter Progress Notes * Marita Dougherty MD - 12/04/2024 10:15 AM EDT CHIEF COMPLAINT/REASON FOR VISIT: Right hand pain SUBJECTIVE: Patient is a 69-year-old female, [id number], here today just to get her right hand checked. I took care of her back in 2021. She had a left endoscopic carpal tunnel and also a trigger release done in the past. She plays a lot of tennis now. She actually got a bruise on her left thumb just the other day when a ball hit her. But basically on the right hand she is noting that she needs more strength. There was not any numbness to complain of the just that it aches because she has been playing quite a bit recently. OBJECTIVE: There is no obvious swelling about the right hand or wrist. She is able to flex extend abduct adduct the fingers and circumduct the thumb. There is no tenderness over the dorsum of the wrist or alongthe flexor surface of any of the digits or thumb. She has negative Tinel's negative Phalen's. She can circumduct the wrist. On the left side she does have a small faint brownish bruise over the MP joint. She is able to movethe thumb. ASSESSMENT: 1. Pain of right hand Patient largely seems to be having some complaints of weakness of stitchdown thread laster and some achiness in the hand following a lot of uptake in her activities. We went over some exercises to do for strengthening. I printed out some information and we went over specifics. If something changes I would be happy to see her back or if she has any concerns. PLAN: As needed Marita Dougherty MD Patient Active Problem List Diagnosis Left carpal tunnel syndrome Right carpal tunnel syndrome Trigger finger of left thumb Trigger finger, left middle finger Pain of right hand Current Outpatient Medications: amLODIPine (NORVASC) 2.5 mg tablet, Take 1 tablet (2.5 mg total) by mouth 1 (one) time each day., Disp: , Rfl: atorvastatin (LIPITOR) 20 mg tablet, Take 1 tablet (20 mg total) by mouth 1 (one) time each day., Disp: , Rfl: carvedilol CR (COREG CR) 10 mg 24 hr capsule, Take 1 capsule (10 mg total) by mouth 1 (one) time each day., Disp: , Rfl: cetirizine (ZyrTEC) 10 mg capsule, Take by mouth., Disp: , Rfl: CHOLECALCIFEROL, VITAMIN D3, ORAL, Take by mouth., Disp: , Rfl: clopidogreL (PLAVIX) 75 mg tablet, Take 1 tablet (75 mg total) by mouth 1 (one) time each day., Disp: , Rfl: losartan (COZAAR) 100 mg tablet, Take 1 tablet (100 mg total) by mouth 1 (one) time each day., Disp: , Rfl: MAGNESIUM ORAL, Take by mouth., Disp: , Rfl: RIBOFLAVIN, VITAMIN B2, ORAL, Take by mouth., Disp: , Rfl: documented in this encounter Plan of Treatment Not on file documented as of this encounter Visit Diagnoses Diagnosis Pain of right hand- Primary documented in this encounter Historical Medications * This list may reflect changes made after this encounter. amLODIPine (NORVASC) 2.5 mg tablet Take 1 tablet (2.5 mg total) by mouth 1 (one) time each day. 09/19/2024 added in this encounter Care Teams Triage Licensed Practical Nurse Relationship Specialty Start Date End Date Subha Rivera NP [address] [place] [address] [address] [place] [address] PCP - General 10/24/21 documented as of this encounter
== END 2024-12-06 11:12 | disposition home or self-care (01) ==
LOC: HO.HSMS 10:05
PROVIDERS: PCP Internal Medicine; Visit Provider Physician Assistant Medical
DX: G47.33 Obstructive sleep apnea (adult) (pediatric) (principal); Z99.89 Dependence on other enabling machines and devices; R53.83 Other fatigue; G47.9 Sleep disorder, unspecified; G43.019 Migraine without aura, intractable, without status migrainosus
CPT/HCPCS: 99214

== ENCOUNTER → 2024-12-06 10:04 | Outpatient (BNVA) | payer MEDICAID, SELFPAY | PROVIDERS: PCP Internal Medicine; Visit Provider Physician Assistant Medical | DX: G47.33 Obstructive sleep apnea (adult) (pediatric) (principal); G47.9 Sleep disorder, unspecified; G43.019 Migraine without aura, intractable, without status migrainosus; R53.83 Other fatigue; Z99.89 Dependence on other enabling machines and devices | CPT/HCPCS: 99212 ==

== ENCOUNTER 2024-12-11 09:03 | Outpatient (REF) | payer MEDICAID, SELFPAY ==
--- OUTSIDE RECORDS SUMMARY | 2024-12-11 09:26 | XMS_ITS | Clinical Summary ---
Author Organization [address] [place] [address] Address [address] [place] [address] Phone Care Team Providers Care Medical Records Administrator Name Role Phone RiveraSubha street Danette LAIRD Primary Care Provider Allergies Active Allergy Reactions [...] 10 mg capsule Take by mouth. Active amLODIPine (NORVASC) 2.5 mg tablet Take 1 tablet (2.5 mg total) by mouth 1 (one) time each day. 09/19/2024 Active Active Problems Problem Noted Date Diagnosed Date Pain of right hand 12/04/2024 Left carpal tunnel syndrome 12/19/2021 Right carpal tunnel syndrome 12/19/2021 Trigger finger of left thumb 12/19/2021 Trigger finger, left middle finger 12/19/2021 Encounters Date Type Department Care Team Description 12/04/2024 10:15 AM EDT Consult Orthopedic Surgery - [address] [place] [address] Marita Dougherty MD Pain of right hand (Primary Dx) from Last 3 Months Surgical History Surgery Date Site/Laterality Comments HYSTERECTOMY PROCEDURE: HISTORICAL HYSTERECTOMY APPENDECTOMY PROCEDURE: [place] APPENDECTOMY CARPAL TUNNEL RELEASE 04/22/2022 Left TRIGGER FINGER RELEASE 04/22/2022 Left long finger and thumb Medical History Medical History Date Comments Essential [...] Mass Index 28.13 12/04/2024 10:04 AM EDT Plan of Treatment Health Maintenance Due Date Last Done Comments Breast Cancer Screening 1955 Zoster Vaccines (1 of 2) 2006 Cholesterol Screening (Lipid Panel) 06/14/2022 Colorectal Cancer Screening: Colonoscopy 06/14/2022 Depression Screening 06/14/2022 Falls Risk Assessment 06/14/2022 Hepatitis C Screening 06/14/2022 Osteoporosis Screening (Bone Density Screening) 06/14/2022 Social Influencers of Health Screening 06/14/2022 Hypertension/CHF/CAD Annual BMP Blood Test 12/04/2024 COVID-19 Vaccine (3 - 2023-2 5 season) 2025 07/04/2024, 05/13/2021 RSV Immunization Adult Patients (1 - 1-dose 75+ series) 11/25/2031 DTaP,Tdap,and Td Vaccines (2 - Td or Tdap) 10/13/2032 10/13/2022 Pneumococcal Vaccine: 50+ Years Completed 10/13/2022 Influenza Vaccine Completed 05/19/2024 HIB Vaccines Aged Out No longer eligi [...] to complete this topic RSV Immunization Patients Under 20 months Aged Out No longer eligible b ased on patient's age to complete this topic Varicella Vaccines Aged Out No longer eligible based on patient's age to complete this topic Insurance MEDICAID - [place] Care Teams Medical Records Administrator Relationship Specialty Start Date End Date Subha Rivera NP [address] [place] [address] [address] [place] [address] PCP - General 10/24/21
[2024-12-11 10:12] LABS: Alanine Aminotransferase 30 U/L (0-31); Albumin Level 4.4 g/dL (3.5-5.0); Alkaline Phosphatase 49 U/L (39-117); Anion Gap 10 (12-20); Aspartate Amino Transferase 31 U/L (5-31); Bilirubin Total 0.9 mg/dL (0.0-1.0); Blood Urea Nitrogen 20 mg/dL (9-16); Calcium 9.8 mg/dL (8.4-10.2); Carbon Dioxide 28 mmol/L (22-29); Chloride 108 mmol/L (96-108); Estimated Glomerular Filt Rate 57; Glucose Random 95 mg/dL (60-115); Potassium 4.5 mmol/L (3.3-5.1); Sodium 141 mmol/L (135-145); Total Protein 7.4 g/dL (6.5-8.0)
[2024-12-14 17:13] LABS: Vitamin D 25-OH, D2 <4 ng/mL; Vitamin D 25-OH, D3 59 ng/mL; Vitamin D 25-OH, Total 59 ng/mL (30-100)
== END 2024-12-11 09:04 | disposition home or self-care (01) ==
LOC: HO.LAB 09:03
PROVIDERS: Visit Provider Student in an Organized Health Care Education/Training Program
DX: M81.0 Age-related osteoporosis without current pathological fracture (principal)
CPT/HCPCS: 36415; 80053; 82306

== ENCOUNTER 2024-12-13 10:51 | Outpatient (AMB) | payer MEDICAID, SELFPAY ==
--- NOTE | 2024-12-13 11:11 | AM.OFFVISNUR ---
Intake Visit Reasons: prolia injection Allergies aspirin Allergy (Intermediate, Verified 12/06/24 10:21) Rash NSAIDS (Non-Steroidal Anti-Inflamma Allergy (Intermediate, Verified 12/06/24 10:21) Rash Penicillins Allergy (Intermediate, Verified 12/06/24 10:21) Rash Office Meds Prolia 60 mg/mL subcutaneous syringe Performing Provider: Sarai Tan MD Performing Location: [facility] Endocrinology Administered by: Keya Victor RN on 12/13/24 11:11 Dose Route Admin Location Dispensed Lot Number Expiration Date [facility] [employer] 60 mg subcut left upper arm 1 mL [id number] 03/04/27 84179-900-35 [employer] Comments: Patient tolerated procedure well. Denies any adverse reactions to previous medications. Assessment & Plan Assessment & Plan Orders: Orders AMB Denosumab Injection Practice Supplied Today M81.0 - Age-related osteoporosis without current pathological fracture Medications: New Prolia (denosumab) 60 mg subcut ONCE 1 mL 0RF NS M81.0 - Age-related osteoporosis without current pathological fracture Coding
== END 2024-12-13 11:10 | disposition home or self-care (01) ==
LOC: HO.RHE 10:51
PROVIDERS: PCP Internal Medicine; Visit Provider Student in an Organized Health Care Education/Training Program
DX: M81.0 Age-related osteoporosis without current pathological fracture (principal)

== ENCOUNTER → 2024-12-13 10:51 | Outpatient (BNVA) | payer MEDICAID, SELFPAY | PROVIDERS: PCP Internal Medicine; Visit Provider Student in an Organized Health Care Education/Training Program | DX: M81.0 Age-related osteoporosis without current pathological fracture (principal) | CPT/HCPCS: 96372; J0897 ==

== ENCOUNTER 2025-04-12 09:48 | Outpatient (REF) | payer MEDICAID, SELFPAY | END 2025-04-12 09:49 | disposition home or self-care (01) | LOC: HO.MAMMO 09:48 | PROVIDERS: PCP Internal Medicine Rheumatology; Visit Provider Internal Medicine | DX: Z12.31 Encounter for screening mammogram for malignant neoplasm of breast (principal) | CPT/HCPCS: 77063; 77067 ==

== ENCOUNTER → 2025-04-12 10:00 | Outpatient (BNV) | payer MEDICAID, SELFPAY | PROVIDERS: PCP Internal Medicine Rheumatology; Visit Provider Radiology Body Imaging | DX: Z12.31 Encounter for screening mammogram for malignant neoplasm of breast (principal) | CPT/HCPCS: 77063; 77067 ==

== ENCOUNTER 2025-06-08 09:10 | Outpatient (REF) | payer MEDICAID, SELFPAY ==
--- OUTSIDE RECORDS SUMMARY | 2025-06-08 09:55 | XMS_ITS | Clinical Summary ---
Author Organization [address] [place] [address] Address [address] [place] [address] Phone Care Team Providers Care Recorder Of Deeds Name Role Phone Rivera Subha Danette LAIRD Primary Care Provider Allergies Active [...] Comments HYSTERECTOMY PROCEDURE: HISTORICAL HYSTERECTOMY APPENDECTOMY PROCEDURE: [place] APPENDECTOMY CARPAL TUNNEL RELEASE 04/22/2022 Left TRIGGER [...] Last Done Comments Breast Cancer Screening 1955 Colorectal Cancer Screening: Colonoscopy 1955 Zoster Vaccines (1 of 2) 2006 Cholesterol Screening (Lipid Panel) 06/14/2022 Falls Risk Assessment 06/14/2022 Hepatitis C Screening 06/14/2022 Osteoporosis Screening (Bone Density Screening) 06/14/2022 Social Influencers of Health Screening 06/14/2022 Depression Screening 07/05/2024 Hypertension/CHF/CAD Annual BMP Blood Test 12/04/2024 COVID-19 Vaccine (3 - 2024-2 6 season) 2025 07/04/2024, 05/13/2021 Influenza Vaccine (#1) 2025 05/19/2024 RSV Immunization Adult Patients (1 - 1-dose 75+ series) 11/25/2031 DTaP,Tdap,and Td Vaccines (2 - Td or Tdap) 10/13/2032 10/13/2022 Pneumococcal Vaccine: 50+ Years Completed 10/13/2022 HIB Vaccines Aged Out No longer eligi [...] topic Insurance MEDICA[place] - [place] Care Teams Recorder Of Deeds Relationship Specialty Start Date End Date Subha Rivera NP [address] [place] [address] [address] [place] [address] PCP - General 10/24/21
--- OUTSIDE RECORDS SUMMARY | 2025-06-08 09:55 | XMS_ITS ---
Author Name [facility] Organization Unknown Care Team Organization Name Specialty Phone Email Start Date End Da te [facility] Termed, PROVIDER Primary Care 05/12/202202/02
[2025-06-08 18:46] LABS: Alanine Aminotransferase 29 U/L (0-31); Albumin Level 4.7 g/dL (3.5-5.0); Alkaline Phosphatase 52 U/L (39-117); Anion Gap 9 (12-20); Aspartate Amino Transferase 30 U/L (5-31); Blood Urea Nitrogen 26 mg/dL (9-16); Calcium 9.8 mg/dL (8.4-10.2); Carbon Dioxide 29 mmol/L (22-29); Chloride 109 mmol/L (96-108); Estimated Glomerular Filt Rate 55; Potassium 4.2 mmol/L (3.3-5.1); Sodium 143 mmol/L (135-145); Total Protein 7.4 g/dL (6.5-8.0)
== END 2025-06-08 09:11 | disposition home or self-care (01) ==
LOC: HO.HKASLDS 09:10
PROVIDERS: Visit Provider Student in an Organized Health Care Education/Training Program
DX: M81.0 Age-related osteoporosis without current pathological fracture (principal)
CPT/HCPCS: 36415; 80053; 82306

== ENCOUNTER 2025-06-15 10:01 | Outpatient (AMB) | payer MEDICAID, SELFPAY ==
--- NOTE | 2025-06-15 10:02 | A.OFFVIS_ITS ---
Vital Signs 06/15/25 10:10 Height 4 ft 11 in Weight 132 lb 4.438 oz BMI 26.7 BP 122/70 Blood Pressure Location Lt brachial Position Sitting Pulse 68 Pulse Source Pulse Oximeter Pulse Oximetry (%) 98 Oxygen Delivery Method Room Air Intake Visit Reasons: prolia injection Intake Note: Patient presents today for Osteoporosis and Prolia injection follow up and test results. Rod Bending Machine Operator Required: Yes Rod Bending Machine Operator Language: Grinding Wheel Operator Services: Rod Bending Machine Operator Offered & Declined Information Interpreted: non-clinical & clinical Accompanied by: Self / Same As Patient Allergies aspirin Allergy (Intermediate, Verified 06/15/25 10:09) Rash NSAIDS (Non-Steroidal Anti-Inflamma Allergy (Intermediate, Verified 06/15/25 10:09) Rash Penicillins Allergy (Intermediate, Verified 06/15/25 10:09) Rash Medication List - Last Reconciled 06/15/25 by Sarai Tan MD acetaminophen 500 mg PO Q6H PRN atorvastatin 40 mg PO DAILY azelastine 2 sprays intranasal BID 30 days cetirizine 10 mg PO DAILY cholecalciferol (vitamin D3) (Vitamin D3) 50 mcg (2 x 25 mcg (1,000 unit)) PO DAILY denosumab (Prolia) 60 mg subcut [id number] fluticasone propionate 50 mcg/actuation (Allergy Relief (fluticasone)) 1 spray intranasal DAILY losartan 100 mg PO DAILY HPI Comments Details: Patient is a 69-year-old female with hyperlipidemia, hypertension, GERD, 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 Mendoza - On Prolia 60mg SC every 6 months - Returns for follow-up and Prolia injection. - She states that she feels about the same. Continues to have intermittent low back pain. She has been playing tennis recently with her children. - She states that she did not like the physical therapy facility here at [place]. Today - On prolia 60mg SC - Presenting for a follow-up visit for osteoporosis management. - She has been receiving Prolia injections for her osteoporosis, with the last administration in December. - A recent bone density scan showed a 9% improvement in her spine and a 4% improvement in her hip compared to a scan from 2021. - The patient reports engaging in exercise, including playing tennis and performing exercises at home with videos. - She is also a member of a gym and was counseled on the importance of progressive weight-bearing exercises. - The patient has a history of chronic low back pain, which is attributed to degenerative disease. - She reports that she has a vitamin D prescription that has run out. - Her lab work indicated a slow decline in kidney function, which was explained as an expected part of aging. - She is taking medications for blood pressure and cholesterol. - She admits to inadequate water intake, stating she is never thirsty and does not drink 8 cups of water daily. 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 who has been in the [place] for about 5 years. - Her from prostate cancer. Rheumatologic History: Initial history: this is a 66-year-old female who presents for evaluation of osteoporosis. Patient stated she was diagnosed with osteoporosis back in 2016 in [facility] and she was started on Fosamax. Patient took a few doses and developed urticarial like skin rashes. She also has history of allergies to aspirin, NSAIDs and penicillin. When she moved to [facility] she received 1 dose of Prolia in November of 2020. No reported side effects. Patient feels well overall. A few months ago she had left shoulder stiffness, she went to physical therapy and her shoulder range of motion has improved. Current Rheumatology Medication(s): Prolia 60mg SC every 6 months [facility] Medical History Vitamin D deficiency High cholesterol Sleep apnea Osteoporosis Hypertension Trigger finger Carpal tunnel syndrome Surgical History History of 3 sections History of carpal tunnel release Hx of hysterectomy Family History Father Hypertension Mother Hypertension Arthritis Social History Household Members: Children Housing: Condominium Alcohol intake: current Alcohol intake frequency: holidays/special occasions only Alcohol type: wine Patient Tobacco Use Status: Never used Tobacco e-Cigarette/Vaping Use: Never Used Current occupational status: unemployed Sexual orientation: Straight/Heterosexual Gender identity: Female Review of Systems Narrative Review of Systems - Musculoskeletal: Reports chronic low back pain. - Reports post-exercise muscle soreness, which she was told is normal. - Constitutional: Denies falls or fractures. - Genitourinary: Reports feeling rarely thirsty. All other systems reviewed and are unremarkable except noted above Physical Exam Exam Exam: Vital signs reviewed Physical Examination CONSTITUITIONAL Patient alert and cooperative. Well appearing and in no apparent painful distress MSK Hands * Right Hand: Able to make a fist. No swelling or tenderness to palpation of the MCPs, PIPs or DIPs. * Left Hand: Able to make a fist. No swelling or tenderness to palpation of the MCPs, PIPs or DIPs. * Herbedens nodes noted bilaterally Wrists * Right Wrist: Full ROM to flexion and extension. No swelling or TTP * Left Wrist: Full ROM to flexion and extension. No swelling or TTP Elbows * Right Elbow: Full ROM. No swelling or TTP. No TTP of the medial epicondyle. No TTP of the lateral epicondyle * Left Elbow: Full ROM. No swelling or TTP. No TTP of the medial epicondyle. No TTP of the lateral epicondyle Shoulders * Right shoulder: Full ROM. No swelling noted. No TTP of the AC joint. No TTP of the subacromial bursa. No TTP of the posterior shoulder * Left shoulder: Full ROM. No swelling noted. No TTP of the AC joint. No TTP of the subacromial bursa. No TTP of the posterior shoulder Knees * Right knee: Full ROM. No swelling noted. No TTP of the knee joint line. No TTP of pes anserine bursa * Left knee: Full ROM. No swelling noted. No TTP of the knee joint line. No TTP of pes anserine bursa. Ankles * Right ankle: Good ankle dorsiflexion and plantar flexion. No swelling. No TTP of the ankle joint * Left ankle: Good ankle dorsiflexion and plantar flexion. No swelling. No TTP of the ankle joint Feet * Right foot: Negative squeeze test * Left foot: Negative squeeze test Tender points? * No tenderness to palpation of the bilateral trapezius, supraspinatus, anterior costochondral junctions, bilateral suboccipital muscle insertions SKIN No rashes Vital Signs: Last Vital Signs Pulse 68 06/15/25 10:10 BP 122/70 06/15/25 10:10 Pulse Ox 98 06/15/25 10:10 Oxygen Delivery Method Room Air 06/15/25 10:10 BMI result Body Mass Index 26.7 Office Meds Prolia 60 mg/mL subcutaneous syringe Performing Provider: Sarai Tan MD Performing Location: [facility] Rheumatology-[facility] Administered by: Lesli Tariq RN on 06/15/25 10:48 Dose Route Admin Location Dispensed Lot Number Expiration Date [facility] Body Shop Manager 60 mg subcut Left posterior forearm 1 mL [id number] 07/04/27 91825-89 0-21 AMGEN Total Dispensed Waste 1 mL 0 % Comments: Next Prolia injection scheduled for 12/18/2025 Results Reviewed Results Reviewed: Laboratory Tests 06/08/25 09:20 Sodium 143 Potassium 4.2 Chloride 109 H Carbon Dioxide 29 BUN 26 H Creatinine 1.01 Estimated GFR 55 AST 30 ALT 29 25-OH Vitamin D Total 63.4 DEXA 09/2024 FINDINGS: The bone mineral density of the lumbar spine is 0.886 with a T-score of -2.4, and a Z-score of -0.6. This represents a BMD change of 9.5% compared to the prior exam. This is statistically significant. The bone mineral density of the left total hip is 0.870 with a T-score of -1.1, and a Z-score of 0.4. This represents BMD change of -1.5% compared to the prior exam. This is not statistically significant. The bone mineral density of the left femoral neck is 0.838 with a T-score of -1.4, and a Z-score of 0.3. This represents BMD change of 4.4% compared to the prior exam. FRACTURE RISK: The FRAX index suggests a ten year probability of major osteoporotic fracture of 5.3%, and of hip fracture 0.6%. Assessment & Plan Assessment & Plan (1) Osteoporosis: Comment: DEXA 02/2021: AP Spine -3.1, Left femur neck -1.7, Left femur total -1.0 DEXA 09/2024: AP Spine -2.4, Left femur neck -1.4, Left femur total -1.1 Started on bisphosphonates in 2017>> developed allergic side effects. 1 dose of Prolia in 11/2020 without any side effects then she moved from [place] to [place] Prolia 08/2022 - Code(s): M81.0 - Age-related osteoporosis without current pathological fracture Category: Medical Qualifiers: Osteoporosis type: age-related Presence of current pathological fracture: without current pathological fracture Qualified Code(s): M81.0 - Age- related osteoporosis without current pathological fracture Plan: #Osteoporosis Patient is a 69-year-old female with osteoporosis here today for follow up The patient's osteoporosis has shown significant improvement with Prolia treatment, as evidenced by a 9% increase in spine bone density and a 4% increase in hip bone density. She will continue Prolia injections, with the next dose due today. A refill for her vitamin D supplement was provided. Counseling was provided on incorporating progressive weight-bearing exercises, starting with light weights such as 3-5 pounds, and gradually increasing every month to build muscle and stimulate bone growth. She was also advised to increase her dietary intake of calcium-rich foods, including milk, cheese, yogurt, spinach, and salmon. We discussed the risks of Prolia, specifically osteonecrosis of the jaw (ONJ). The patient was advised that for any elective major dental surgery, she should hold the Prolia injection until it is due, have the procedure, and then resume treatment. It was clarified that this risk is specific to the jawbone and does not apply to other bones in the body. Follow-up is scheduled in 6 months Plan - Prolia 60mg SC every 6 months - RTC 6 months - Labs before visit: CMP and Vit D (2) Degenerative arthritis of lumbar spine: Code(s): M47.816 - Spondylosis without myelopathy or radiculopathy, lumbar region Category: Medical Qualifiers: Spinal osteoarthritis complication: without myelopathy or radiculopathy Qualified Code(s): M47.816 - Spondylosis without myelopathy or radiculopathy, lumbar region Plan: #Degenerative arthritis of L Spine The patient's chronic low back pain is attributed to degenerative disease. She was counseled on the benefits of core and abdominal strengthening exercises. The option of a referral to pain management for procedures like injections was mentioned, though no definitive plan was made for this at this time. Plan - Continue exercises and stretches at home Plan I reviewed the patient's recent bone density scan, which showed a significant improvement of 9% in her spine and 4% in her hip since 2021, and I attributed this to her Prolia treatment and exercise regimen. We discussed the importance of continued physical activity, specifically progressive weight-bearing exercises starting with 3-5 lbs, to further strengthen muscles and stimulate bone growth. I informed her that her lab work was generally good, with a perfect vitamin D level, but noted a slow, age-related decline in kidney function. I advised her to increase her daily water intake to half a gallon to support her kidneys. We also discussed that her chronic low back pain is secondary to degenerative disease and can be managed with strengthening exercises. We had an extensive discussion about Prolia, affirming it is a very safe medication. I explained the risk of osteonecrosis of the jaw (ONJ) and the recommendation to hold the medication for any elective major dental surgeries, making it clear this risk is specific to the jawbone. I agreed to provide a refill for her vitamin D. I recommended a diet rich in calcium and provided examples such as milk, cheese, and salmon. I reassured her that we can forward her medical records if she needs to relocate. The plan is for her to follow up in six months. This is my first visit with the patient. I spent 38 minutes reviewing the record and labs, taking a history, examining the patient, discussing the treatment plan, ordering diagnostic work up and documenting in the medical record Orders: Orders Vitamin D 25-OH Total 6 Months E55.9 - Vitamin D deficiency, unspecified, M81.0 - Age-related osteoporosis without current pathological fracture AMB Denosumab Injection Practice Supplied Today M81.0 - Age-related osteoporosis without current pathological fracture Comprehensive Met. Panel 6 Months E55.9 - Vitamin D deficiency, unspecified, M81.0 - Age-related osteoporosis without current pathological fracture Medications: Refilled cholecalciferol (vitamin D3) (Vitamin D3) 50 mcg (2 x 25 mcg (1,000 unit)) PO DAILY 180 caps 1RF E55.9 - Vitamin D deficiency, unspecified Coding Level of Care Code Est Pt Level 4 (10257) Add On Problem Visit Only Diagnoses Age-related osteoporosis without current pathological fracture M81.0 Osteoporosis type: age-related Presence of current pathological fracture: without current pathological fracture Spondylosis of lumbar region without myelopathy or radiculopathy M47.816 Spinal osteoarthritis complication: without myelopathy or radiculopathy
[2025-06-15 10:10] VITALS: BP 122/70; PULSE 68; O2SAT 98; BMI 26.7
== END 2025-06-15 10:51 | disposition home or self-care (01) ==
LOC: HO.RHES 10:02
PROVIDERS: PCP Internal Medicine Rheumatology; Visit Provider Student in an Organized Health Care Education/Training Program
DX: M81.0 Age-related osteoporosis without current pathological fracture (principal); M47.816 Spondylosis without myelopathy or radiculopathy, lumbar region
CPT/HCPCS: 99214

== ENCOUNTER → 2025-06-15 10:01 | Outpatient (BNVA) | payer MEDICAID, SELFPAY | PROVIDERS: PCP Internal Medicine Rheumatology; Visit Provider Student in an Organized Health Care Education/Training Program | DX: M81.0 Age-related osteoporosis without current pathological fracture (principal) | CPT/HCPCS: 96372; 99212; J0897 ==